=== PATIENT | female | born 1945 | race Caucasian/White ===

== ENCOUNTER → 2016-09-06 08:25 | Outpatient (CLI) | payer MEDICARE, OTHER | END | disposition home or self-care (01) | LOC: D.MRI 08:25 | DX: G31.84 Mild cognitive impairment of uncertain or unknown etiology (principal) ==

== ENCOUNTER → 2018-10-10 08:00 | Outpatient (CLI) | payer MEDICARE, OTHER ==
[~2018-10-10 08:00] MED LIST: ACETAMINOPHEN500 M1 PO; ALLER-CHLOR4 MG PO; BAYER CHEWABLE81 MG PO; BUPROPION XL150 MG PO; DONEPEZIL HCL5 MG PO; EZFE 200200 MG PO; FEMARA2.5 MG PO; FLUTICASONE PRO16 GM NASAL; MERIBIN5 MG PO; MERTAZAPINE PO; MYSOLINE 50 MG50 MG PO; PLAVIX75 MG PO; PROTONIX40 MG PO; REMICADE INJ100 MG; SUPER B COMPLEX; TUMERIC PO; ULTRAM50 MG PO; VITAMIN D5000 UNIT PO; [UNRECOGNIZED DRUG - OTHER] PO
[2018-10-24 11:52] VITALS: BMI 21.5
== END | disposition home or self-care (01) ==
LOC: D.MRI 08:00
PROVIDERS: ATTEND Family Medicine
DX: S32.010A Wedge compression fracture of first lumbar vertebra, initial encounter for closed fracture (principal); S22.070A Wedge compression fracture of T9-T10 vertebra, initial encounter for closed fracture; X58.XXXA Exposure to other specified factors, initial encounter

== ENCOUNTER → 2018-10-18 09:55 | Outpatient (CLI) | payer MEDICARE, OTHER ==
[2018-10-18 11:33] LABS: APPEARANCE CLEAR (CLEAR); BILIRUBIN NEGATIVE (NEGATIVE); COLOR YELLOW (YELLOW); GLUCOSE NEGATIVE (NEGATIVE); KETONE NEGATIVE (NEGATIVE); NITRITE NEGATIVE (NEGATIVE); PROTEIN NEGATIVE (NEGATIVE); SPECIFIC GRAVITY 1.015 (1.005-1.020); UROBILINOGEN NORMAL (NORMAL)
== END | disposition home or self-care (01) ==
LOC: D.LAB 09:55
PROVIDERS: ATTEND General Practice
DX: N39.0 Urinary tract infection, site not specified (principal)

== ENCOUNTER 2018-10-24 09:29 | Outpatient (CLI) | payer MEDICARE, OTHER ==
[~2018-10-24] VITALS: Ht 162.6 cm; Wt 56.8 kg
--- NOTE | ~2018-10-24 | HEMODYNAMI ---
PATIENT:REZA HU MEDICAL RECORD: [id number] : 45 LOCATION:[facility] ADMISSION DATE: 10/24/18 Generatedon:10/24/201814:04 Patient name: REZA HU Patient #: [id number] SSN: : 1945 Date of study: 10/24/2018 Page: Of Hemodynamic Procedure Report Patient Data Patient Demographics Procedure consent was obtained First Name: REZA Gender: Female Last Name: FRITZ : 1945 [facility] Initial: KRYSTIAN Age: 73 year(s) Patient #: [id number] Race: Unknown Additional ID: [id number] Contact details Address: [address] [place] [address] State: [place] City: [place] Zip code: [address] Admission Admission Data Admission Date: 10/24/2018 Admission Time: 9:29 Procedure Procedure Types Cath Procedure Peripheral Cath Diagnostic Procedure Kyphoplasty Kyphoplasty Thoracic Procedure Description Procedure Date Procedure Date: 10/24/2018 Procedure Start Time: 13:08 Procedure End Time: 14:04 Procedure Staff Name Function Yefri Sims MD Performing Physician Minal Mitchell RT Monitor Jennifer Mcpherson RN Nurse Taty Soriano RN Nurse Kuldeep Causey RT Scrub WU COTTRELL RT Scrub Alexander Calderon Additional personnel Procedure Data Cath Procedure Fluoroscopy Diagnostic fluoroscopy Total fluoroscopy Time: time: 10.5 min 10.5 min Diagnostic fluoroscopy Total fluoroscopy dose: 98 dose: 98 mGy mGy Contrast Material Contrast Material Type Amount (ml) Isovue 300 0 Procedure Medications Medication Administration Route Dosage Heparin Flush Bag added to field 2 bags (1000units/500ml NS) Lidocaine 1% added to field 20 Ancef (1Gm/50ml NS) I.V.P.B 1 g Hemodynamics Rest Heart Rate: 110 (bpm) Snapshots Pre Cath Intra NCS Post Cath Vital Signs Time Heart Resp SPO2 etCO2 NIBP (mmHg) Rhythm Pain Sedation Rate (ipm) (%) (mmHg) Status Level (bpm) 12:41:12 81 16 99 25.5 171/99(107) NSR 0 (11) 10(A) , No pain 12:45:40 62 20 100 22.5 148/71(100) NSR 0 (11) 8(A) , No pain 12:48:47 68 32 100 25.5 142/79(102) NSR 0 (11) 8(A) , No pain 12:53:03 71 18 100 25.5 142/78(116) NSR 0 (11) 8(A) , No pain 12:57:21 68 16 100 28.5 135/73(98) NSR 0 (11) 8(A) , No pain 13:01:39 70 20 100 24.8 121/63(99) NSR 0 (11) 8(A) , No pain 13:05:53 68 18 100 32.3 114/60(89) NSR 0 (11) 8(A) , No pain 13:10:07 68 32 100 36 101/53(74) NSR 0 (11) 8(A) , No pain 13:14:19 72 10 100 34.5 95/46(59) NSR 0 (11) 8(A) , No pain 13:18:18 67 9 100 27 112/53(74) NSR 0 (11) 8(A) , No pain 13:22:30 71 8 99 33 87/43(63) NSR 0 (11) 8(A) , No pain 13:26:34 70 16 99 36 103/55(71) NSR 0 (11) 8(A) , No pain 13:30:44 76 8 98 45.8 92/46(61) NSR 0 (11) 8(A) , No pain 13:34:52 72 13 98 50.3 102/48(74) NSR 0 (11) 8(A) , No pain 13:39:05 76 18 98 30.8 86/39(53) NSR 0 (11) 8(A) , No pain 13:43:07 72 11 98 42.8 99/54(81) NSR 0 (11) 8(A) , No pain 13:47:17 76 20 97 0 105/49(71) NSR 0 (11) 8(A) , No pain 13:51:27 86 15 97 71.4 108/53(81) NSR 0 (11) 8(A) , No pain 13:55:37 90 10 96 55.6 107/56(72) NSR 0 (11) 8(A) , No pain 13:59:47 91 13 96 40.5 107/58(82) NSR 0 (11) 8(A) , No pain 14:00:54 91 13 96 39.1 111/63(78) NSR 0 (11) 8(A) , No pain Medications Time Medication Route Dose Verified Delivered Reason Notes Effe ctiveness by by 12:42:22 Heparin Flush added 2 Yefri Jennifer used for Bag to bags Ky Sims rn procedures (1000units/500ml field NS) 12:42:45 Lidocaine 1% added 20ml Yefri Jennifer used for to vial Ky Sims rn procedures field 12:50:23 Ancef (1Gm/50ml I.V.P.B 1 g Yefri Jennifer used for NS) Ky Sims rn procedures MD Procedure Log Time Note 12:16:15 Kuldeep Causey RT (R) (CV) sent for patient. Start room use. 12:16:27 Alexander Calderon present and monitoring patient for TIVA. 12:16:35 Time tracking: Regular hours (M-F 7:00 - 5:00) 12:16:40 Plan of Care:Hemodynamics will remain stable., Cardiac rhythm will remain stable., Comfort level will be maintained., Respiratory function will remain adequate., Patient/ family verbilizes understanding of procedure., Procedure tolerated without complication., Recovers from procedure without complications.. 12:16:48 Use device set IR Diagnostic 12:16:50 Bag Decanter (2002S) opened to sterile field. 12:16:50 Sterile Angiographic Pack opened to sterile field. 12:16:51 Tegaderm 4 x 4 (1626W) opened to sterile field. 12:16:58 Patient received from Outpatients to IR Alert and oriented. Tansferred to table in Prone position. 12:17:00 Correct patient and procedure confirmed by team. 12:17:01 Signed procedure consent form obtained from patient. 12:17:02 ECG and BP/O2 sat monitors applied to patient. 12:17:04 Full Disclosure recording started 12:17:04 - 12:17:07 H&P Date Dictated: 10/24/2018 H&P Addendum completed by physician on day of procedure. (MUST COMPLETE FOR ALL OUTPATIENTS). 12:17:08 Pre-procedure instructions explained to patient. 12:17:09 Pre-op teaching completed and patient verbalized understanding. 12:17:10 Family in waiting room. 12:17:13 Patient NPO since Midnight. 12:17:16 - 12:17:31 SEE ANESTHESIA NOTE FOR PRE PROCEDURE TIVA 12:17:32 - 12:17:37 Sharps counted by scrub and verified. 12:17:37 Alarms reviewed. 12:30:04 Warm blankets applied, and yady hugger turned on for patient comfort. 12:35:50 Lumbar area was prepped with dura-prep and draped in sterile fashion 12:35:59 Thoracic area was prepped with dura-prep and draped in sterile fashion 12:39:57 Vital chart was started 12:40:29 Baseline sample Acquired. 12:42:22 Heparin Flush Bag (1000units/500ml NS) 2 bags added to field was administered by Jennifer Mcpherson RN; used for procedure; 12:42:45 Lidocaine 1% 20ml vial added to field was administered by Jennifer Mcpherson RN; used for procedure; 12:50:23 Ancef (1Gm/50ml NS) 1 g I.V.P.B was administered by Jennifer Mcpherson RN; used for procedure; 12:57:08 MARIELLA BNCMNT CURV BALLOON [id number] opened to sterile field. 12:57:10 MARIELLA AUTOPLEX MIXER W/VHV opened to sterile field. 12:57:11 [place] BONE BX 11GA kit opened to sterile field. 13:07:17 Physician arrived 13:07:18 --------ALL STOP TIME OUT------ 13:07:20 Final Timeout: patient, procedure, and site verified with staff and physician. All members of the team are in agreement. 13:07:31 THORACIC site verified by team. 13:08:02 Sedation plan: TIVA Medication:Propofol 13:08:57 Procedure started. 13:12:07 Local aneshetic to Thoracic with Lidocaine 1% by Yefri Sims MD. INITIAL SITE 13:20:22 Bone bx needle placed. 13:31:24 Kyphoplasty balloon introduced. 13:38:20 Cement introduced to vertebral body. 13:48:38 the access trocar was removed. 13:49:37 Procedure ended.(Physican Out) 13:55:29 Fluoroscopy time 10.50 minutes. 13:55:35 Fluoroscopy dose: 98 mGy 13:55:35 Flurop Dose total: 98 13:55:42 Contrast amount:Isovue 300 0ml. 13:55:46 Sharps counted by scrub and verified . 13:56:31 Post Thoracic area:stable 13:56:54 Patient needs reinforcement of post procedure teaching. 13:57:29 Insertion/operative site no bleeding no hematoma. 13:57:54 Post-op/insertion site Right Thoracic area dressed using a 4 x 4 and Tegaderm. 13:58:54 SEE ANESTHESIA NOTE FOR POST PROCEDURE ASSESSMENT . 13:59:16 Post procedure instruction explained to patient.Patient verbalizes understanding. 13:59:27 Procedure and supply charges have been captured, reviewed, submitted an d are correct. 13:59:36 See physician's report for complete and final results. 14:03:52 Report given to Outpatients. 14:03:59 Patient transfered to Outpatients with Stretcher. 14:04:03 Procedure ended. 14:04:03 Full Disclosure recording stopped 14:04:39 Vital chart was stopped Device Usage Item Name Manufacture Quantity Catalog Hospital Part Current Minim al Lot# / Number Charge Number Stock Stock Serial# Code Bag Decanter Microtek 1 [id number] 5 () Medical Inc. Sterile Cardinal 1 [id number] 5 Angiographic Health Pack Tegaderm 4 x 3M 1 1626W [id number] [id number] [id number] 5 4 (1626W) MARIELLA Mariella 1 [id number] [id number] [id number] 9 BNCMNT CURV BALLOON [id number] MARIELLA [place] 1 [id number] 691610 87136 [id number] 5 AUTOPLEX MIXER W/VHV Mariella BONE Mariella 1 [id number] 503108 [id number] 5 BX 11GA kit Signature Audit [place] Stage Time Signature Unsigned Intra-Procedure 10/24/2018 Minal 2:04:35 PM Paula THURSTON(R) (CV) Signatures Monitor : Minal Signature : Paula RT Date : Time : [address] [address]
[2018-10-24 09:52] LABS: BASOPHILS 0.4 % (0-2); EOSINOPHILS 1.6 % (0-7); HEMOGLOBIN 14.3 g/dL (12-16); IMMATURE GRANULOCYTES 0.2 % (0-5); LYMPHOCYTES 28.8 % (15-50); MCH 31.7 pg (26.0-34.0); MCV 93.1 fL (80.0-100.0); MEAN PLATELET VOLUME 9.5 fL (7.4-10.4); MONOCYTES 13.2 % (2-11); NEUTROPHILS 55.8 % (40-80); PLATELET COUNT 257 10x3/uL (130-400); RBC 4.51 10x6/uL (4.00-5.40); RDW 14.2 % (11.5-14.5); WBC 4.5 10x3/uL (4.8-10.8)
[2018-10-24 10:04] LABS: APTT 29.3 SECONDS (22.8-39.4); INR 1.05 (0.85-1.17); PROTIME 13.2 SECONDS (11.6-15.0)
[2018-10-24 10:05] LABS: CALC OSMOLALITY 283 mosm/kg (275-300); CALCIUM 9.2 mg/dL (8.5-10.1); CARBON DIOXIDE 27.9 mmol/L (21.0-32.0); CHLORIDE - SERUM 104 mmol/L (98-107); CREATININE - SERUM 0.7 mg/dL (0.6-1.3); GLUCOSE 93 mg/dL (74-106); SODIUM 142 mmol/L (136-145); UREA NITROGEN 16 mg/dL (7-18); eGFR NON AFRICAN AMERICAN 87 mL/min (90-120)
[2018-10-24] MEDS ORDERED: BAYER CHEWABLE81 MG PO (11:28)
[2018-10-24] MEDS ORDERED: MERIBIN5 MG PO (11:28)
[2018-10-24] MEDS ORDERED: ACETAMINOPHEN500 M1 PO (11:28)
[2018-10-24] MEDS ORDERED: BUPROPION XL150 MG PO (11:29)
[2018-10-24] MEDS ORDERED: [UNRECOGNIZED DRUG - OTHER] PO (11:30)
[2018-10-24] MEDS ORDERED: DONEPEZIL HCL5 MG PO (11:30)
[2018-10-24] MEDS ORDERED: FLUTICASONE PRO16 GM NASAL (11:31)
[2018-10-24] MEDS ORDERED: FEMARA2.5 MG PO (11:31)
[2018-10-24] MEDS ORDERED: EZFE 200200 MG PO (11:31)
[2018-10-24] MEDS ORDERED: MYSOLINE 50 MG50 MG PO (11:32)
[2018-10-24] MEDS ORDERED: MERTAZAPINE PO (11:32)
[2018-10-24] MEDS ORDERED: PLAVIX75 MG PO (11:32)
[2018-10-24] MEDS ORDERED: REMICADE INJ100 MG (11:33)
[2018-10-24] MEDS ORDERED: PROTONIX40 MG PO (11:33)
[2018-10-24] MEDS ORDERED: ALLER-CHLOR4 MG PO (11:34)
[2018-10-24] MEDS ORDERED: SUPER B COMPLEX (11:34)
[2018-10-24] MEDS ORDERED: TUMERIC PO (11:35)
[2018-10-24] MEDS ORDERED: ULTRAM50 MG PO (11:35)
[2018-10-24] MEDS ORDERED: VITAMIN D5000 UNIT PO (11:35)
[2018-10-24 11:52] VITALS: BP 153/81; Ht 162.6 cm; Wt 56.8 kg
--- NOTE | 2018-10-24 14:38 | NUR ---
1440 PT UNABLE TO GET OOB, REFUSED A BEDPAN SO SHE STATED SHE WILL JUST BE INCONTINENT IN HER SUPER PAD. TURNED TO LEFT SIDE. WAITING FOR PAIN MED ORDER FROM DR BROWNLEE. PT IN MODERATE PAIN. SAME PAIN SHE HAD BEFORE PROCEDURE.
--- NOTE | 2018-10-24 15:07 | NUR ---
1455 MEDICATED FOR PAIN. 1500 ABI HERE AT BEDSIDE. PT ON LEFT SIDE. DRG CDI ICE PACK TO BACK. 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 ORDERS GIVEN FOR DILAUDID IV 0.5MG
--- NOTE | 2018-10-24 15:32 | NUR ---
1532 DR BROWNLEE AT BEDSIDE TO TALK WITH PT. PT GIVEN IV DILAUDID FOR PAIN. MOVES ALL EXTREMITIES WELL. GOOD SENSATION. TOLERATING ICE CREAM,
--- NOTE | 2018-10-24 16:04 | NUR ---
RADIOLOGY DEPT CALLED AND SPOKE TO LOWE NURSE AND INFORMED HER OF PTS PAIN LEVEL AND THAT SHE WANTED A RX FOR PAIN. ULTRAM 50MG WORKED WITH THE IV DILAUDID.
--- NOTE | 2018-10-24 16:22 | NUR ---
IV REMOVED PT WALKED IN HALLWAY WITH STAND BY ASSIST. BALANCE STEADY. DRG DRY AND INTACT.
== END 2018-10-24 16:30 | disposition home or self-care (01) ==
LOC: D.SP 09:29
PROVIDERS: ATTEND General Practice
DX: M48.54XA Collapsed vertebra, not elsewhere classified, thoracic region, initial encounter for fracture (principal); F32.9 Major depressive disorder, single episode, unspecified; K50.90 Crohn's disease, unspecified, without complications; D64.9 Anemia, unspecified; M81.0 Age-related osteoporosis without current pathological fracture; F09 Unspecified mental disorder due to known physiological condition; Z79.891 Long term (current) use of opiate analgesic; Z79.02 Long term (current) use of antithrombotics/antiplatelets; Z79.82 Long term (current) use of aspirin; Z79.899 Other long term (current) drug therapy; Z88.5 Allergy status to narcotic agent; Z88.2 Allergy status to sulfonamides; Z88.8 Allergy status to other drugs, medicaments and biological substances; Z01.812 Encounter for preprocedural laboratory examination

== ENCOUNTER → 2019-01-17 14:34 | Outpatient (CLI) | payer MEDICARE, OTHER ==
[2018-10-24 11:52] VITALS: BMI 21.5
== END | disposition home or self-care (01) ==
LOC: D.MRI 14:34
PROVIDERS: ATTEND Family Medicine
DX: S32.000A Wedge compression fracture of unspecified lumbar vertebra, initial encounter for closed fracture (principal)

== ENCOUNTER 2019-01-30 15:00 | Outpatient (CLI) | payer MEDICARE, OTHER ==
[~2019-01-30] VITALS: Ht 160 cm; Wt 52.3 kg
[2019-01-30 15:30] VITALS: Ht 160 cm; Wt 52.3 kg
[2019-01-30 16:57] LABS: APPEARANCE CLEAR (CLEAR); BILIRUBIN NEGATIVE (NEGATIVE); COLOR YELLOW (YELLOW); GLUCOSE NEGATIVE (NEGATIVE); KETONE NEGATIVE (NEGATIVE); NITRITE NEGATIVE (NEGATIVE); PROTEIN NEGATIVE (NEGATIVE); UROBILINOGEN NORMAL (NORMAL)
== END 2019-01-30 15:50 | disposition home or self-care (01) ==
LOC: D.OPS 15:00
PROVIDERS: ATTEND General Practice
DX: R10.9 Unspecified abdominal pain (principal); M48.54XA Collapsed vertebra, not elsewhere classified, thoracic region, initial encounter for fracture; X58.XXXA Exposure to other specified factors, initial encounter; Z01.812 Encounter for preprocedural laboratory examination

== ENCOUNTER 2019-02-05 10:54 | Outpatient (CLI) | payer MEDICARE, OTHER ==
[~2019-02-05] VITALS: Ht 160 cm; Wt 52.2 kg
--- NOTE | ~2019-02-05 | HEMODYNAMI ---
PATIENT:REZA HU MEDICAL RECORD: [id number] : 45 LOCATION:[facility] ADMISSION DATE: 02/05/19 Generatedon:02/05/201914:42 Patient name: REZA HU Patient #: [id number] SSN: : 1945 Date of study: 02/05/2019 Page: Of Hemodynamic Procedure Report Patient Data Patient Demographics Procedure consent was obtained First Name: REZA Gender: Female Last Name: FRITZ : 1945 [facility] Initial: KRYSTIAN Age: 73 year(s) Patient #: [id number] Race: Unknown Additional ID: [id number] Contact details Address: [facility] [address] State: [place] City: [place] Zip code: [address] Past Medical History Allergies Allergen Reaction Date Comments Reported Other allergy 02/05/2019 sulfa, valium, flexeril, flagyl, percocet, benadryl, hydrocodone, latex, reglan, tetracycline, varapamil Admission Admission Data Admission Date: 02/05/2019 Admission Time: 10:54 Procedure Procedure Types Cath Procedure Peripheral Cath Diagnostic Procedure Miscellaneous Procedure Description Procedure Date Procedure Date: 02/05/2019 Procedure Start Time: 14:16 Procedure End Time: 14:39 Procedure Staff Name Function Yefri Sims MD Performing Physician WU COTTRELL RT Monitor Taty Soriano RN Nurse Kuldeep Causey RT Scrub Lance Garg CRNA Additional personnel Procedure Data Cath Procedure Fluoroscopy Diagnostic fluoroscopy Total fluoroscopy Time: 5.9 time: 5.9 min min Diagnostic fluoroscopy Total fluoroscopy dose: 136 dose: 136 mGy mGy Procedure Medications Medication Administration Route Dosage Heparin Flush Bag added to field 2 bags (1000units/500ml NS) Lidocaine 1% added to field 20 Heparin Flush Bag added to field 1 bags (1000units/500ml NS) Lidocaine 1% added to field 20 Hemodynamics Rest Heart Rate: 49 (bpm) Snapshots Pre Cath Intra NCS Post Cath Vital Signs Time Heart Resp SPO2 etCO2 NIBP (mmHg) Rhythm Pain Sedation Rate (ipm) (%) (mmHg) Status Level (bpm) 13:34:08 100 30.8 141/81(105) NSR 0 (11) 10(A) , No pain 13:38:18 100 25.5 141/78(112) NSR 0 (11) 10(A) , No pain 13:42:26 100 24.7 133/83(102) NSR 0 (11) 10(A) , No pain 13:47:25 28.5 Measuring NSR 0 (11) 10(A) , No pain 13:48:25 33 135/88(116) NSR 0 (11) 10(A) , No pain 13:52:32 73 15 100 33.8 125/81(100) NSR 0 (11) 10(A) , No pain 13:56:34 71 12 100 35.2 131/81(104) NSR 0 (11) 10(A) , No pain 14:00:38 70 19 100 29.2 128/83(105) NSR 0 (11) 10(A) , No pain 14:04:40 71 14 100 33 129/84(98) NSR 0 (11) 10(A) , No pain 14:08:43 63 17 100 0 115/77(93) NSR 0 (11) 10(A) , No pain 14:12:39 84 14 100 34.5 122/92(109) NSR 0 (11) 10(A) , No pain 14:16:41 68 13 100 26.2 118/77(96) NSR 0 (11) 10(A) , No pain 14:20:44 64 9 100 37.5 101/72(88) NSR 0 (11) 10(A) , No pain 14:24:46 60 9 100 17.2 104/58(79) NSR 0 (11) 10(A) , No pain 14:28:50 59 9 100 19.5 101/55(92) NSR 0 (11) 10(A) , No pain 14:32:47 59 10 100 40.5 102/68(82) NSR 0 (11) 10(A) , No pain 14:36:43 72 15 100 36 116/73(96) NSR 0 (11) 10(A) , No pain Medications Time Medication Route Dose Verified Delivered Reason Notes Effe ctiveness by by 13:27:26 Heparin Flush added 2 Yefri Asif used for Bag to bags Levi Sims MD procedure (1000units/500ml field [place] NS) 13:27:38 Lidocaine 1% added 20ml Yefri Asif for local to vial Levi Sims MD anesthetic field EVANS 13:59:22 Heparin Flush added 1 Yefri Asif used for Bag to bags Levi Sims MD procedure (1000units/500ml field [place] NS) 13:59:35 Lidocaine 1% added 20ml Yefri Asif for local to vial Levi Sims MD anesthetic field EVANS Procedure Log Time Note 13:19:02 Kuldeep Causey RT (R) (CV) sent for patient. Start room use. 13:19:04 Time tracking: Regular hours (M-F 7:00 - 5:00) 13:19:15 Plan of Care:Hemodynamics will remain stable., Cardiac rhythm will remain stable., Comfort level will be maintained., Respiratory function will remain adequate., Patient/ family verbilizes understanding of procedure., Procedure tolerated without complication., Recovers from procedure without complications.. 13:19:23 Patient received from Outpatients to IR Alert and oriented. Tansferred to table in Prone position. 13:19:27 Signed procedure consent form obtained from patient. 13:19:32 Correct patient and procedure confirmed by team. 13:19:35 ECG and BP/O2 sat monitors applied to patient. 13:19:38 - 13:19:39 - 13:19:47 H&P Date Dictated: 02/05/2019 H&P Addendum completed by physician on day of procedure. (MUST COMPLETE FOR ALL OUTPATIENTS). 13:19:51 Pre-procedure instructions explained to patient. 13:19:51 Pre-op teaching completed and patient verbalized understanding. 13:19:56 Patient NPO since Midnight. 13:23:33 Is the patient allergic to Iodine/contrast media? No. 13:27:26 Heparin Flush Bag (1000units/500ml NS) 2 bags added to field was administered by Yefri Sims MD; used for procedure; 13:27:29 Patient allergic to Other allergysulfa, valium, flexeril, flagyl, percocet, benadryl, hydrocodone, latex, reglan, tetracycline, varapamil 13:27:38 Lidocaine 1% 20ml vial added to field was administered by Yefri Sims MD; for local anesthetic; 13:27:41 Is patient on blood thinner?Yes. Aspirin and Plavix last dose 01/31/2019 13:28:30 Patient diabetic? No. 13:28:32 - 13:29:26 see anesthesia note for pre-anesthesia assessment 13:29:33 - 13:29:52 Lumbar area was prepped with chlora-prep and draped in sterile fashion 13:29:55 Alarms reviewed by Estefani Harris 13::56 Sharps counted by scrub and verified by Serge 13:32:33 - 13:33:00 Vital chart was started 13:33:12 Full Disclosure recording started 13:41:12 - 13:41:24 Use device set IR Diagnostic 13:41:29 Bag Decanter () opened to sterile field. 13:41:29 Sterile Angiographic Pack opened to sterile field. 13:41:30 Tegaderm 4 x 4 (1626W) opened to sterile field. 13:50:04 Baseline sample Acquired. 13:50:36 - 13:59:22 Heparin Flush Bag (1000units/500ml NS) 1 bags added to field was administered by Yefri Sims MD; used for procedure; 13:59:35 Lidocaine 1% 20ml vial added to field was administered by Yefri Sims MD; for local anesthetic; 14:13:22 Physician arrived 14:13:31 --------ALL STOP TIME OUT------ 14:14:18 Final Timeout: patient, procedure, and site verified with staff and physician. All members of the team are in agreement. 14:14:25 Lumbar site verified by team. 14:14:30 Fire Safety Assessment: A--An alcohol-based skin anteseptic being used preoperatively., C--Open oxygen or nitrous oxide is being used. 14:14:51 2) 60-89 Mildly reduced kidney function, and other findings (as for stage 1) point to kidney disease. 14:14:56 Kuldeep Causey RT (R) (CV) present and monitoring patient for TIVA. 14:16:39 Procedure started. 14:27:50 Bone bx needle placed. 14:33:00 [place] BONE BX 11GA kit opened to sterile field. 14:35:48 Procedure ended.(Physican Out) 14:36:18 Fluoroscopy time 05.90 minutes. 14:36:38 Fluoroscopy dose: 136 mGy 14:36:38 Flurop Dose total: 136 14:38:43 see anethesia note for post anethesia 14:39:07 Post-op/insertion site Left Lumbar area dressed using a 4 x 4 and Tegaderm. 14:39:40 Procedure and supply charges have been captured, reviewed, submitted an d are correct. 14:39:42 Vital chart was stopped 14:39:45 See physician's report for complete and final results. 14:39:49 Patient transfered to Outpatients with Stretcher. 14:39:53 Procedure ended. 14:39:53 Full Disclosure recording stopped Device Usage Item Name Manufacture Quantity Catalog Hospital Part Current Minimal Lot# / Number Charge Number Stock Stock Serial# Code Bag Decanter Microtek 1 [id number] 5 () Medical Inc. Sterile Cardinal 1 [id number] 5 Angiographic Health Pack Tegaderm 4 x 3M 1 1626W 464807 [id number] [id number] 5 4 (1626W) Mariella BONE Mariella 1 [id number] 5 BX 11GA kit Signature Audit [place] Stage Time Signature Unsigned Intra-Procedure 02/05/2019 WU COTTRELL RT 2:42:07 PM (R) Signatures Monitor : WU COTTRELL RT Signature : Date : Time : [facility] [address] [place] [address]
[2019-02-05 11:13] LABS: BASOPHILS 0.4 % (0-2); EOSINOPHILS 0.4 % (0-7); IMMATURE GRANULOCYTES 0.2 % (0-5); LYMPHOCYTES 28.5 % (15-50); MCH 31.5 pg (26.0-34.0); MCHC 34.1 g/dL (31.0-37.0); MCV 92.4 fL (80.0-100.0); MEAN PLATELET VOLUME 9.2 fL (7.4-10.4); MONOCYTES 9.3 % (2-11); NEUTROPHILS 61.2 % (40-80); PLATELET COUNT 230 10x3/uL (130-400); RBC 4.76 10x6/uL (4.00-5.40); RDW 15.5 % (11.5-14.5); WBC 5.5 10x3/uL (4.8-10.8)
[2019-02-05 11:20] LABS: CALC OSMOLALITY 279 mosm/kg (275-300); CHLORIDE - SERUM 104 mmol/L (98-107); CREATININE - SERUM 0.7 mg/dL (0.6-1.3); GLUCOSE 89 mg/dL (74-106); POTASSIUM - SERUM 3.7 mmol/L (3.5-5.1); SODIUM 141 mmol/L (136-145); UREA NITROGEN 13 mg/dL (7-18); eGFR NON AFRICAN AMERICAN 87 mL/min (90-120)
[2019-02-05 11:26] LABS: APTT 27.6 SECONDS (22.8-39.4); INR 1.08 (0.85-1.17); PROTIME 13.5 SECONDS (11.6-15.0)
[2019-02-05] MEDS ORDERED: FEMARA2.5 MG PO (11:51)
[2019-02-05] MEDS ORDERED: MILK OF MAGNESI30 ML PO (11:55)
[2019-02-05 12:04] VITALS: BP 106/69; Ht 160 cm; Wt 52.2 kg
--- NOTE | 2019-02-05 17:17 | NUR ---
1500 SEE FREQ VS SHEET IV REMOVED FROM PORT AND FLUSHED WITH 500 UNITS OF HEPRIN IV AND NEEDLE REMOVED AND BANDAID APPLIED
[2019-02-06 20:07] LABS: ACID FAST SMEAR Negative (()); AFB SPECIMEN PROCESSING Tissue Grinding (())
[2019-02-07 12:10] LABS: FUNGUS STAIN Final report (())
[2019-02-08 17:08] LABS: FUNGUS MYCOLOGY CULTURE Preliminary report (())
== END 2019-02-05 17:00 | disposition home or self-care (01) ==
LOC: D.SP 10:54 → D.RAD 13:00 → D.SP 13:30
PROVIDERS: ATTEND General Practice
DX: M48.54XA Collapsed vertebra, not elsewhere classified, thoracic region, initial encounter for fracture (principal)

== ENCOUNTER 2019-02-16 10:56 | Day surgery (SDC) | payer MEDICARE, OTHER ==
[~2019-02-16] VITALS: Ht 160 cm; Wt 51.4 kg
--- NOTE | ~2019-02-16 | HEMODYNAMI ---
PATIENT:REZA HU MEDICAL RECORD: [id number] : 45 LOCATION:[facility] ADMISSION DATE: 02/16/19 Generatedon:02/16/201915:18 Patient name: REZA HU Patient #: [id number] SSN: : 1945 Date of study: 02/16/2019 Page: Of Hemodynamic Procedure Report Patient Data Patient Demographics First Name: REZA Gender: Female Last Name: FRITZ : 1945 [facility] Initial: KRYSTIAN Age: 73 year(s) Patient #: [id number] Race: Unknown Additional ID: [id number] Contact details Address: [place] [address] State: [place] City: [place] Zip code: [address] Past Medical History Allergies Allergen Reaction Date Comments Reported Other allergy 02/05/2019 sulfa, valium, flexeril, flagyl, percocet, benadryl, hydrocodone, latex, reglan, tetracycline, varapamil Admission Admission Data Admission Date: 02/16/2019 Admission Time: 10:56 Procedure Procedure Types Cath Procedure Peripheral Cath Diagnostic Procedure Kyphoplasty Kyphoplasty Thoracic Procedure Description Procedure Date Procedure Date: 02/16/2019 Procedure Start Time: 14:29 Procedure Staff Name Function Yefri Sims MD Performing Physician Kuldeep Causey RT Monitor WU COTTRELL RT Scrub Jennifer Mcpherson RN Nurse Rafita Calderon CRNA Additional personnel Procedure Data Cath Procedure Fluoroscopy Diagnostic fluoroscopy Total fluoroscopy Time: time: 11.4 min 11.4 min Diagnostic fluoroscopy Total fluoroscopy dose: 238 dose: 238 mGy mGy Contrast Material Contrast Material Type Amount (ml) Isovue 300 50 Hemodynamics Rest Heart Rate: 74 (bpm) Snapshots Pre Cath Intra NCS Post Cath Vital Signs Time Heart Resp SPO2 etCO2 NIBP (mmHg) Rhythm Pain Sedation Rate (ipm) (%) (mmHg) Status Level (bpm) 14:12:07 67 7 17.2 No Cuff NSR 0 (11) 10(A) , No pain 14:15:34 71 6 18.7 121/74(103) NSR 0 (11) 10(A) , No pain 14:19:36 70 9 100 22.5 120/76(98) NSR 0 (11) 10(A) , No pain 14:23:36 66 9 100 20.9 116/81(100) NSR 0 (11) 10(A) , No pain 14:27:35 67 10 100 20.9 117/77(98) NSR 0 (11) 10(A) , No pain 14:31:39 72 30 100 18 104/66(87) NSR 0 (11) 10(A) , No pain 14:35:40 70 40 100 8.2 95/59(72) NSR 0 (11) 10(A) , No pain 14:40:40 69 61 99 18.7 Measuring NSR 0 (11) 10(A) , No pain 14:41:31 66 63 99 18.7 82/57(71) NSR 0 (11) 10(A) , No pain 14:45:26 67 47 99 16.5 91/55(65) NSR 0 (11) 10(A) , No pain 14:49:24 65 65 99 18 84/56(69) NSR 0 (11) 10(A) , No pain 14:53:19 65 64 99 14.2 83/56(71) NSR 0 (11) 10(A) , No pain 14:57:13 65 62 100 18 91/59(73) NSR 0 (11) 10(A) , No pain 15:01:08 65 65 100 18 85/60(71) NSR 0 (11) 10(A) , No pain 15:05:04 65 58 100 18 87/53(72) NSR 0 (11) 10(A) , No pain 15:08:52 66 28 100 13.5 103/85(101) NSR 0 (11) 10(A) , No pain 15:12:47 73 12 100 21 103/78(90) NSR 0 (11) 10(A) , No pain 15:16:59 100 0 No Cuff NSR 0 (11) 10(A) , No pain Procedure Log Time Note 13:54:20 Rafita Calderon CRNA present and monitoring patient for TIVA. 13:54:26 Jennifer Mcpherson RN sent for patient. Start room use. 13:54:35 Use device set IR Diagnostic 13:54:36 Bag Decanter (2002S) opened to sterile field. 13:54:36 Sterile Angiographic Pack opened to sterile field. 13:54:37 Tegaderm 4 x 4 (1626W) opened to sterile field. 13:54:44 Time tracking: Regular hours (M-F 7:00 - 5:00) 13:54:51 Plan of Care:Hemodynamics will remain stable., Cardiac rhythm will remain stable., Comfort level will be maintained., Respiratory function will remain adequate., Patient/ family verbilizes understanding of procedure., Procedure tolerated without complication., Recovers from procedure without complications.. 13:54:58 Patient received from Outpatients to IR Alert and oriented. Tansferred to table in Prone position. 13:54:59 Correct patient and procedure confirmed by team. 13:55:04 ECG and BP/O2 sat monitors applied to patient. 13:55:05 Full Disclosure recording started 13:55:09 - 13:55:13 H&P Date Dictated: 02/16/2019 H&P Addendum completed by physician on day of procedure. (MUST COMPLETE FOR ALL OUTPATIENTS). 13:55:14 Pre-procedure instructions explained to patient. 13:55:14 Pre-op teaching completed and patient verbalized understanding. 13:55:31 - 13:55:54 SEE ANESTHESIA NOTES FOR PRE ANESTHESIA NOTES 13:55:59 - 13:56:05 Alarms reviewed by Estefani Harris 13:56:05 Sharps counted by scrub and verified by Serge 13:56:11 Thoracic area was prepped with dura-prep and draped in sterile fashion 14:11:17 Vital chart was started 14:11:19 Baseline sample Acquired. 14::27 Baseline sample Acquired. 14:28: Physician arrived 14:28:06 --------ALL STOP TIME OUT------ 14:: Final Timeout: patient, procedure, and site verified with staff and physician. All members of the team are in agreement. 14:28:26 Lumbar site verified by team. 14:28:31 Fire Safety Assessment: A--An alcohol-based skin anteseptic being used preoperatively., C--Open oxygen or nitrous oxide is being used. 14:29:35 Sedation plan: TIVA Medication:Propofol 14:29:45 Procedure started. 14:29:55 Local anesthetic to Thoracic area with Lidocaine 1% by Yefri Sims MD.INITIAL ACCESS ONLY 14:29:58 MARIELLA BNCMNT CURV BALLOON [id number] opened to sterile field. 15:06:15 Procedure ended.(Physican Out) 15:07:43 Fluoroscopy time 11.40 minutes. 15:07:51 Fluoroscopy dose: 238 mGy 15:07:51 Flurop Dose total: 238 15:08:01 Contrast amount:Isovue 300 50ml. 15:08:21 50 CC CONTRAST USED FOR INFLATOR 15:08:24 Insertion/operative site no bleeding no hematoma. 15:08:34 Post Thoracic area:stable 15:17:24 SEE ANESTHESIA NOTE FOR POST PROCEDURE TIVA 15:17:29 Report given to Outpatients. 15:17:33 Patient transfered to Outpatients with Stretcher. 15:18:12 Vital chart was stopped Device Usage Item Name Manufacture Quantity Catalog Hospital Part Current Minim al Lot# / Number Charge Number Stock Stock Serial# Code Bag Decanter Microtek 1 [id number] 5 () [employer] Sterile Cardinal [address] [id number] 5 Angiographic Health Pack Tegaderm 4 x 3M 1 1626W [id number] 5 4 (1626W) MARIELLA Mariella 1 [id number] 1 BNCMNT CURV BALLOON [id number] Signature Audit [place] Stage Time Signature Unsigned Intra-Procedure 02/16/2019 Kuldeep 3:18:11 PM Padilla RT (R) (CV) Signatures Monitor : Kuldeep Signature : Padilla RT Date : Time : [address] [place] [address]
[~2019-02-16 10:56] MED LIST changes: +MILK OF MAGNESI30 ML PO
[2019-02-16 11:25] LABS: BASOPHILS 0.3 % (0-2); EOSINOPHILS 0.7 % (0-7); HEMATOCRIT 44.8 % (36.0-48.0); HEMOGLOBIN 14.9 g/dL (12-16); IMMATURE GRANULOCYTES 0.2 % (0-5); LYMPHOCYTES 29.6 % (15-50); MCH 30.8 pg (26.0-34.0); MCHC 33.3 g/dL (31.0-37.0); MCV 92.6 fL (80.0-100.0); MEAN PLATELET VOLUME 9.4 fL (7.4-10.4); MONOCYTES 9.9 % (2-11); NEUTROPHILS 59.3 % (40-80); PLATELET COUNT 245 10x3/uL (130-400); RBC 4.84 10x6/uL (4.00-5.40); RDW 15.5 % (11.5-14.5)
[2019-02-16 11:35] LABS: CALC OSMOLALITY 281 mosm/kg (275-300); CALCIUM 9.5 mg/dL (8.5-10.1); CARBON DIOXIDE 30.7 mmol/L (21.0-32.0); CHLORIDE - SERUM 104 mmol/L (98-107); CREATININE - SERUM 0.7 mg/dL (0.6-1.3); GLUCOSE 93 mg/dL (74-106); POTASSIUM - SERUM 3.9 mmol/L (3.5-5.1); SODIUM 141 mmol/L (136-145); UREA NITROGEN 15 mg/dL (7-18); eGFR NON AFRICAN AMERICAN 87 mL/min (90-120)
[2019-02-16 11:36] LABS: APTT 27.1 SECONDS (22.8-39.4); INR 1.01 (0.85-1.17); PROTIME 12.8 SECONDS (11.6-15.0)
[2019-02-16] MEDS ORDERED: PROTONIX40 MG PO (12:16)
[2019-02-16 12:29] VITALS: BP 125/64; Ht 160 cm; Wt 51.4 kg
--- NOTE | 2019-02-16 17:50 | NUR ---
DISCHARGE INSTRUCTIONS REVIEWED WITH PATIENT AND SPOUSE, DISCHARGED HOME VIA WHEELCHAIR TO PRIVATE VEHICLE WITH SPOUSE
== END 2019-02-16 17:50 | disposition home or self-care (01) ==
LOC: D.SP 10:56 → D.RAD 13:30 → D.SP 17:50
PROVIDERS: ATTEND General Practice
DX: M48.54XA Collapsed vertebra, not elsewhere classified, thoracic region, initial encounter for fracture (principal)

== ENCOUNTER → 2019-03-30 12:32 | Outpatient (CLI) | payer MEDICARE, OTHER | END | disposition home or self-care (01) | LOC: D.RAD 12:32 | PROVIDERS: ATTEND Family Medicine | DX: R13.11 Dysphagia, oral phase (principal) ==

== ENCOUNTER 2019-04-09 00:11 | Inpatient (IN) | payer MEDICARE, OTHER ==
[~2019-04-09] VITALS: Ht 160 cm; Wt 47.6 kg
[2019-04-09] VITALS (7 sets, daily range): BP systolic 100–130; BP diastolic 67–82; Ht 160 cm; Wt 47.6 kg
--- NOTE | 2019-04-09 00:27 | NUR ---
EKG ATTEMPTED. UNABLE TO OBTAIN EKG D/T PT HX OF PARKINSON[place].
[2019-04-09 00:44] LABS: BASOPHILS 0.4 % (0-2); EOSINOPHILS 1.1 % (0-7); HEMATOCRIT 40.5 % (36.0-48.0); HEMOGLOBIN 13.7 g/dL (12-16); IMMATURE GRANULOCYTES 0.4 % (0-5); LYMPHOCYTES 30.8 % (15-50); MCH 31.6 pg (26.0-34.0); MCHC 33.8 g/dL (31.0-37.0); MCV 93.3 fL (80.0-100.0); MEAN PLATELET VOLUME 9.6 fL (7.4-10.4); MONOCYTES 10.5 % (2-11); NEUTROPHILS 56.8 % (40-80); PLATELET COUNT 244 10x3/uL (130-400); RBC 4.34 10x6/uL (4.00-5.40); RDW 14.5 % (11.5-14.5); WBC 7.5 10x3/uL (4.8-10.8)
--- NOTE | 2019-04-09 01:00 | NUR ---
RT AT PT BEDSIDE.
[2019-04-09 01:08] LABS: APTT 28.1 SECONDS (22.8-39.4); INR 1.06 (0.85-1.17); PROTIME 13.3 SECONDS (11.6-15.0)
[2019-04-09 01:09] LABS: ALBUMIN 3.8 g/dL (3.4-5.0); ALKALINE PHOSPHATASE 111 U/L (46-116); ALT (SGPT) 10 U/L (10-68); BILIRUBIN - TOTAL 0.58 mg/dL (0.2-1.3); CALC OSMOLALITY 278 mosm/kg (275-300); CALCIUM 9.1 mg/dL (8.5-10.1); CARBON DIOXIDE 28.2 mmol/L (21.0-32.0); CHLORIDE - SERUM 103 mmol/L (98-107); CREATININE - SERUM 0.8 mg/dL (0.6-1.3); GLUCOSE 90 mg/dL (74-106); POTASSIUM - SERUM 3.9 mmol/L (3.5-5.1); PROTEIN - SERUM 7.3 g/dL (6.4-8.2); SODIUM 139 mmol/L (136-145); UREA NITROGEN 15 mg/dL (7-18); eGFR NON AFRICAN AMERICAN 74 mL/min (90-120)
[2019-04-09 01:16] LABS: CKMB 2.6 U/L (0.0-3.6); CREATINE KINASE 128 UL (21-215); PRO BNP 34 pg/mL (0-125)
[2019-04-09 01:22] LABS: TROPONIN-I < 0.017 ng/mL (0.000-0.060)
--- NOTE | 2019-04-09 01:45 | NUR ---
O2 VIA NC TURNED OFF AT THIS TIME. PT ON RA.
--- NOTE | 2019-04-09 03:21 | NUR ---
PT ARRIVED ON UNIT VIA WHEELCHAIR ESCORTED BY ER NURSE. ORIENTED TO ROOM AND CALL LIGHT. POSITIONED FOR COMFORT.
[2019-04-09] MEDS ORDERED: ATIVAN1 MG PO (03:33)
[2019-04-09] MEDS ORDERED: REMERON30 MG PO (03:39)
--- NOTE | 2019-04-09 04:45 | NUR ---
ADMISSION ASSESSMENT AND HISTORY COMPLETE.
--- NOTE | 2019-04-09 07:00 | NUR ---
PATIENT RECIEVED FROM PREVIOUS SHIFT RESTING WITH NO NEEDS VOICED. PATIENT HOPES TO BE DISCHARGED TODAY DUE TO FEELING BETTER.
--- NOTE | 2019-04-09 17:05 | NUR ---
RT PERFORMED NIF AND VC NIF -20 (PATIENT REACHED BETWEEN -20 AND -25) VITAL CAPACITY 900MLS EACH TEST PERFORMED 3 TIMES ALL WITH GOOD EFFORT AND TECHNIQUE TO ENSURE ACCURACY.
--- NOTE | 2019-04-09 20:00 | NUR ---
ALERT SITTING UP IN BED REQUESTING ATIVAN, STATES I FEEL LIKE IM GOING TO HAVE ONE OF THOSE PANIC ATTACKS, ATIVAN GIVEN ORDERED, O2 SAT AT 95% ON RA, WILL MONITOR, SEE ASSESSMENT, CALL LIGHT IN REACH
[2019-04-10 00:30] VITALS: BP 108/68
[2019-04-10 05:11] VITALS: BP 124/60
--- NOTE | 2019-04-10 07:00 | NUR ---
PATIENT RECIEVED RESTING WITH NO NEEDS VOICED, RESPIRATIONS NON-LABORED. CL IN REACH
--- NOTE | 2019-04-10 07:00 | NUR ---
PATIENT RECIEVED RESTING WITH NO NEEDS VOICED. RESPIRATIONS REGULAR AND NONLABORED.
[2019-04-10 08:28] VITALS: BP 108/63
[2019-04-10 13:13] VITALS: BP 90/56
--- NOTE | 2019-04-10 16:13 | MORECARE ---
CASE MANAGEMENT DISCHARGE SUMMARY PATIENT: REZA HU KRYSTIAN UNIT: [id number] ADM DATE: 04/09/19 AGE: 74 : 45 SEX: F ROOM/BED: D.4519 AUTHOR: EMPERATRIZ BARRERA PHYSICIAN: REFERRING PHYSICIAN: KALLIE MIRANDA MD DATE OF SERVICE: 04/10/19 Discharge Plan Patient Name: REZA HU Facility: [facility]:[place] : 1945 Planned Disposition: Home Health Service Anticipated Discharge Date: Discharge Date: Expected LOS: Initial Reviewer: [id number] Initial Review Date: 04/09/2019 Generated: 04/10/19 5:12 pm Comments DCP- Discharge Planning Updated by [email or web address]: Leyla Grijalva on 04/10/19 3:[address] Patient Name: REZA HU Admission Status: ER Accout number: [id number] Admission Date: 04-09-2019 : 1945 Admission Diagnosis: Attending: KALLIE MIRANDA Current LOS: 1 Anticipated DC Date: Planned Disposition: Home Health Service Primary Insurance: MEDICARE A & B Discharge Planning Comments: CM met with patient to assess discharge planning needs. Patient lives independently with her . She is current with [employer]. She uses a walker at times and her will be the one to drive her home. She denies any discharge planning needs Continuity Writer: Leyla Grijalva DCP- Discharge Planning Updated by [email or web address]: Leyla Grijalva on 04/09/19 2:[address] MAN SERVED AND EXPLAINED. COPY PLACED IN CHART Coverage Notice Reviewer: [id number] - Leyla Grijalva Notice Issued Date-Time: 04/09/2019 15:30 Notice Type: Medicare Outpatient Observation Notice Notice Delivered To: Patient Relationship to Patient: Server Administrator Name: Delivery Method: HAND - Hand Delivered Radha Days: Prior Verbal Notification: Recipient Understood Notice: Yes Recipient Signature: Yes Med Rec Note Co-signed by Attending: Coverage Notice Comment: Patient Name: REZA HU Page 85331 at 1613 All edits/amendments must be made on the electronic document DICTATION DATE: 04/10/191611 GLOVE BOARDER: DM 04/10/191611 RPT#: [id number] DC DATE: STATUS: ADM IN [facility] [address] [place] [address] END OF REPORT
[2019-04-10 16:41] VITALS: BP 108/64
--- NOTE | 2019-04-10 20:00 | NUR ---
ALERT RESTING IN BED DENIES PAIN OR NEEDS AT THIS TIME, RESP EVEN AND UNLABORED, SEE SHIFT ASSESSMENT CALL LIGHT IN REACH
[2019-04-10 20:49] VITALS: BP 106/68
[2019-04-11 01:12] VITALS: BP 126/70
[2019-04-11 05:03] VITALS: BP 108/64
--- NOTE | 2019-04-11 07:32 | NUR ---
PT SITTING UP IN BED. RESP EVEN AND UNLABORED. RIGHT CHEST PORT ACCESSED AND SALINE LOC'D. SALINE LOC TO RIGHT FOREARM INTACT. SITES WITHOUT REDNESS OR EDEMA. PT DENIES PAIN AT THIS TIME. DENIES FURTHER NEEDS AT THIS TIME. CL WITHIN REACH. ENCOURAGED TO CALL WITH NEEDS. CONTINUE POC
[2019-04-11 09:23] VITALS: BP 119/69
--- NOTE | 2019-04-11 11:05 | NUR ---
PT RIGHT CHEST PORT FLUSHED WITH HEPARIN AND DISCONTINUED. APPLIED 2X2 TO SITE AND COVERED WITH COVADERM. SALINE LOC D/C'D FROM RIGHT FOREARM CATH INTACT. DISCHARGE PAPERWORK PROVIDED TO PT, WITH CONTINUED MEDICATIONS, FOLLOW UP APPOINTMENT AND EDUCATION. PT DENIED QUESTIONS AT THIS TIME. PT TAKEN OUT VIA W/C TO PRIVATE VEHICLE WITH ALL PERSONAL BELONGINGS.
--- NOTE | 2019-04-11 11:41 | MORECARE ---
CASE MANAGEMENT DISCHARGE SUMMARY PATIENT: REZA HU UNIT: [id number] ADM DATE: 04/10/19 AGE: 74 : 45 SEX: F ROOM/BED: D.9864 AUTHOR: EMPERATRIZ BARRERA PHYSICIAN: REFERRING PHYSICIAN: KALLIE MIRANDA MD DATE OF SERVICE: 04/11/19 Discharge Plan Patient Name: REZA HU Facility: [facility]:[place] : 1945 Planned Disposition: Home Health Service Anticipated Discharge Date: Discharge Date: 04/11/2019 Expected LOS: Initial Reviewer: [email or web address] Initial Review Date: 04/09/2019 Generated: 04/11/19 12:41 pm Comments DCP- Discharge Planning Updated by [email or web address]: Leyla Grijalva on 04/11/19 10:[address] patient discharging home will send clinical to [facility] DCP- Discharge Planning Updated by [id number]: Leyla Grijalva on 04/10/19 3:[address] Patient Name: REZA HU Admission Status: ER Accout number: [id number] Admission Date: 04-09-2019 : 1945 Admission Diagnosis: Attending: KALLIE MIRANDA Current LOS: 1 Anticipated DC Date: Planned Disposition: Home Health Service Primary Insurance: MEDICARE A & B Discharge Planning Comments: CM met with patient to assess discharge planning needs. Patient lives independently with her . She is current with [employer]. She uses a walker at times and her will be the one to drive her home. She denies any discharge planning needs Master Pilot: Leyla Grijalva DCP- Discharge Planning Updated by [email or web address]: Leyla Grijalva on 04/09/19 2:[address] MAN SERVED AND EXPLAINED. COPY PLACED IN CHART Coverage Notice Reviewer: [id number] - Leyla Grijalva Notice Issued Date-Time: 04/09/2019 15:30 Notice Type: Medicare Outpatient Observation Notice Notice Delivered To: Patient Relationship to Patient: Supervisor Assembly Name: Delivery Method: HAND - Hand Delivered Radha Days: Prior Verbal Notification: Recipient Understood Notice: Yes Recipient Signature: Yes Med Rec Note Co-signed by Attending: Coverage Notice Comment: Last DP export: 04/10/19 3:13 p Patient Name: REZA HU Page 80750 at 1141 All edits/amendments must be made on the electronic document DICTATION DATE: 04/11/19 114 ADVANCE AGENT: ENDER 04/11/19 114 RPT#: [id number] DC DATE:04/11/19 STATUS: DIS IN [facility] [address] [place] [address] END OF REPORT
--- NOTE | 2019-04-11 12:07 | MORECARE ---
CASE MANAGEMENT DISCHARGE SUMMARY PATIENT: REZA HU UNIT: [id number] ADM DATE: 04/10/19 AGE: 74 : 45 SEX: F ROOM/BED: D.8840 AUTHOR: EMPERATRIZ BARRERA PHYSICIAN: REFERRING PHYSICIAN: KALLIE MIRANDA MD DATE OF SERVICE: 04/11/19 Discharge Plan Patient Name: REZA HU Facility: [facility]:[place] : 1945 Planned Disposition: Home Health Service Anticipated Discharge Date: Discharge Date: 04/11/2019 Expected LOS: Initial Reviewer: [email or web address] Initial Review Date: 04/09/2019 Generated: 04/11/19 1:06 pm Comments DCP- Discharge Planning Updated by [email or web address]: Leyla Grijalva on 04/11/19 10:[address] patient discharging home will send clinical to [facility] DCP- Discharge Planning Updated by [email or web address]: Leyla Grijalva on 04/10/19 3:[address] Patient Name: REZA HU Admission Status: ER Accout number: [id number] Admission Date: 04-09-2019 : 1945 Admission Diagnosis: Attending: KALLIE MIRANDA Current LOS: 1 Anticipated DC Date: Planned Disposition: Home Health Service Primary Insurance: MEDICARE A & B Discharge Planning Comments: CM met with patient to assess discharge planning needs. Patient lives independently with her . She is current with [employer]. She uses a walker at times and her will be the one to drive her home. She denies any discharge planning needs Iron Worker Foreman: Leyla Grijalva DCP- Discharge Planning Updated by [email or web address]: Leyla Grijalva on 04/09/19 2:[address] MAN SERVED AND EXPLAINED. COPY PLACED IN CHART External [facility]iders [facility] Next Contact Date: Service Request Date: Service Type: Resolution: Reviewer: Comments: Coverage Notice Reviewer: [id number] - Leyla Grijalva Notice Issued Date-Time: 04/09/2019 15:30 Notice Type: Medicare Outpatient Observation Notice Notice Delivered To: Patient Relationship to Patient: Safety Leader Name: Delivery Method: HAND - Hand Delivered Radha Days: Prior Verbal Notification: Recipient Understood Notice: Yes Recipient Signature: Yes Med Rec Note Co-signed by Attending: Coverage Notice Comment: Last DP export: 04/11/19 10:41 a Patient Name: REZA HU Page 58852 at 1207 All edits/amendments must be made on the electronic document DICTATION DATE: 04/11/191205 LEAD C DEVELOPER: ENDER 04/11/191205 RPT#: [id number] DC DATE:04/11/19 STATUS: DIS IN [facility] [address] [place] [address] END OF REPORT
--- NOTE | 2019-04-12 08:15 | MORECARE ---
CASE MANAGEMENT DISCHARGE SUMMARY PATIENT: REZA HU UNIT: [id number] ADM DATE: 04/10/19 AGE: 74 : 45 SEX: F ROOM/BED: D.8940 AUTHOR: EMPERATRIZ BARRERA PHYSICIAN: REFERRING PHYSICIAN: KALLIE MIRANDA MD DATE OF SERVICE: 04/12/19 Discharge Plan Patient Name: REZA HU Facility: [facility]:[place] : 1945 Planned Disposition: Home Health Service Anticipated Discharge Date: Discharge Date: 04/11/2019 Expected LOS: 0 Initial Reviewer: [email or web address] Initial Review Date: 04/09/2019 Generated: 04/12/19 9:14 am Comments DCP- Discharge Planning Updated by [email or web address]: Leyla Grijalva on 04/11/19 10:[address] patient discharging home will send clinical to [facility] DCP- Discharge Planning Updated by [email or web address]: Leyla Grijalva on 04/10/19 3:[address] Patient Name: REZA HU Admission Status: ER Accout number: [id number] Admission Date: 04-09-2019 : 1945 Admission Diagnosis: Attending: KALLIE MIRANDA Current LOS: 1 Anticipated DC Date: Planned Disposition: Home Health Service Primary Insurance: MEDICARE A & B Discharge Planning Comments: CM met with patient to assess discharge planning needs. Patient lives independently with her . She is current with [email or web address]. She uses a walker at times and her will be the one to drive her home. She denies any discharge planning needs Veterinary Livestock Inspector: Leyla Grijalva DCP- Discharge Planning Updated by [email or web address]: Leyla Grijalva on 04/09/19 2:[address] MAN SERVED AND EXPLAINED. COPY PLACED IN CHART Coverage Notice Reviewer: [id number] - Leyla Grijalva Notice Issued Date-Time: 04/09/2019 15:30 Notice Type: Medicare Outpatient Observation Notice Notice Delivered To: Patient Relationship to Patient: Reaming Machine Tender Name: Delivery Method: HAND - Hand Delivered Radha Days: Prior Verbal Notification: Recipient Understood Notice: Yes Recipient Signature: Yes Med Rec Note Co-signed by Attending: Coverage Notice Comment: Last DP export: 04/11/19 11:07 a Patient Name: REZA HU Page 73093 at 0815 All edits/amendments must be made on the electronic document DICTATION DATE: 04/12/19813 ORDER ENTRY TECHNICIAN: ENDER 04/12/19813 RPT#: [id number] DC DATE:04/11/19 STATUS: DIS IN [facility] [address] [place] [address] END OF REPORT
== END 2019-04-11 11:17 | disposition home health service (06) | DRG 641 ==
LOC: D.ER 00:11 → D.MS 02:13 → OBSVTIME 02:13 → D.MS 04-10 18:36
PROVIDERS: Family Medicine; ADMIT Family Medicine; ATTEND Family Medicine
DX: E87.3 Alkalosis (principal); K50.90 Crohn's disease, unspecified, without complications; F41.9 Anxiety disorder, unspecified; G20 Parkinson's disease; K21.9 Gastro-esophageal reflux disease without esophagitis; M19.90 Unspecified osteoarthritis, unspecified site; F41.0 Panic disorder [episodic paroxysmal anxiety]; M80.88XD Other osteoporosis with current pathological fracture, vertebra(e), subsequent encounter for fracture with routine healing; M41.85 Other forms of scoliosis, thoracolumbar region

== ENCOUNTER 2019-05-21 09:30 | Emergency (ER) | payer MEDICARE, OTHER ==
[~2019-05-21] VITALS: Ht 160 cm; Wt 49.1 kg
[~2019-05-21 09:30] MED LIST changes: +ATIVAN1 MG PO; +REMERON30 MG PO
[2019-05-21 09:39] VITALS: Ht 160 cm; Wt 49.1 kg
[2019-05-21 10:58] VITALS: BP 120/78
== END 2019-05-21 10:58 | disposition home or self-care (01) ==
LOC: D.ER 09:30
DX: S00.11XA Contusion of right eyelid and periocular area, initial encounter (principal); W19.XXXA Unspecified fall, initial encounter; Y93.9 Activity, unspecified; Y92.9 Unspecified place or not applicable; S60.512A Abrasion of left hand, initial encounter; S80.811A Abrasion, right lower leg, initial encounter; G20 Parkinson's disease; F02.80 Dementia in other diseases classified elsewhere, unspecified severity, without behavioral disturbance, psychotic disturbance, mood disturbance, and anxiety

== ENCOUNTER 2019-09-04 09:07 | Emergency (ER) | payer MEDICARE, OTHER ==
[~2019-09-04] VITALS: Ht 160 cm; Wt 46.8 kg
[2019-09-04 09:11] VITALS: Ht 160 cm; Wt 46.8 kg
[2019-09-04] MEDS ORDERED: RYTARY (09:18)
[2019-09-04] MEDS ORDERED: MAG-OX 400 MG400 MG (09:19)
[2019-09-04] MEDS ORDERED: ULTRAM50 MG PO (09:19)
[2019-09-04 09:51] LABS: BASOPHILS 0.8 % (0-2); HEMATOCRIT 41.9 % (36.0-48.0); HEMOGLOBIN 13.7 g/dL (12-16); IMMATURE GRANULOCYTES 0.3 % (0-5); LYMPHOCYTES 26.4 % (15-50); MCH 30.4 pg (26.0-34.0); MCHC 32.7 g/dL (31.0-37.0); MCV 93.1 fL (80.0-100.0); MEAN PLATELET VOLUME 9.8 fL (7.4-10.4); MONOCYTES 10.1 % (2-11); NEUTROPHILS 61.4 % (40-80); PLATELET COUNT 240 10x3/uL (130-400); WBC 3.9 10x3/uL (4.8-10.8)
[2019-09-04 09:59] LABS: CALC OSMOLALITY 280 mosm/kg (275-300); CALCIUM 8.8 mg/dL (8.5-10.1); CARBON DIOXIDE 31.9 mmol/L (21.0-32.0); CHLORIDE - SERUM 103 mmol/L (98-107); CREATININE - SERUM 0.7 mg/dL (0.6-1.3); GLUCOSE 103 mg/dL (74-106); POTASSIUM - SERUM 3.9 mmol/L (3.5-5.1); SODIUM 140 mmol/L (136-145); UREA NITROGEN 18 mg/dL (7-18); eGFR NON AFRICAN AMERICAN 87 mL/min (90-120)
[2019-09-04 10:17] LABS: ALBUMIN 3.8 g/dL (3.4-5.0); ALKALINE PHOSPHATASE 84 U/L (30-120); ALT (SGPT) 9 U/L (10-68); AMYLASE - SERUM 41 U/L (25-115); CKMB 1.7 U/L (0.0-3.6); CREATINE KINASE 103 UL (21-215); LIPASE 143 U/L (73-393); TROPONIN-I < 0.017 ng/mL (0.000-0.060)
[2019-09-04 10:50] LABS: BILIRUBIN NEGATIVE (NEGATIVE); GLUCOSE NEGATIVE (NEGATIVE); KETONE NEGATIVE (NEGATIVE); NITRITE NEGATIVE (NEGATIVE); UROBILINOGEN NORMAL (NORMAL)
[2019-09-04] MEDS ORDERED: CARAFATE1 G PO (12:42)
[2019-09-04] MEDS ORDERED: PROTONIX40 MG PO (12:42)
[2019-09-04 12:55] VITALS: BP 151/66
== END 2019-09-04 12:55 | disposition home or self-care (01) ==
LOC: D.ER 09:07
PROVIDERS: Family Medicine
DX: K29.70 Gastritis, unspecified, without bleeding (principal); R10.9 Unspecified abdominal pain; G20 Parkinson's disease; F02.80 Dementia in other diseases classified elsewhere, unspecified severity, without behavioral disturbance, psychotic disturbance, mood disturbance, and anxiety; R11.0 Nausea

== ENCOUNTER 2019-09-08 18:34 | Inpatient (IN) | payer MEDICARE, OTHER ==
[~2019-09-08] VITALS: Ht 160 cm; Wt 44.5 kg
[~2019-09-08 18:34] MED LIST changes: +CARAFATE1 G PO; +MAG-OX 400 MG400 MG; +RYTARY ER 23.71 EACH PO; -SUPER B COMPLEX; +SUPER B COMPLEX1 TAB PO
[2019-09-08 19:00] VITALS: BP 127/83
[2019-09-08 19:01] LABS: BASOPHILS 0.1 % (0-2); EOSINOPHILS 0.1 % (0-7); HEMATOCRIT 43.7 % (36.0-48.0); HEMOGLOBIN 14.4 g/dL (12-16); IMMATURE GRANULOCYTES 0.5 % (0-5); LYMPHOCYTES 6.9 % (15-50); MCH 30.6 pg (26.0-34.0); MCV 92.8 fL (80.0-100.0); MEAN PLATELET VOLUME 10.1 fL (7.4-10.4); MONOCYTES 10.8 % (2-11); NEUTROPHILS 81.6 % (40-80); RBC 4.71 10x6/uL (4.00-5.40); RDW 16.1 % (11.5-14.5); WBC 15.9 10x3/uL (4.8-10.8)
[2019-09-08 19:02] LABS: PLATELET COUNT 323 10x3/uL (130-400)
[2019-09-08 19:08] LABS: ANION GAP 12.2 mmol/L (8-16); CREATININE - SERUM 0.9 mg/dL (0.6-1.3); POTASSIUM - SERUM 4.2 mmol/L (3.5-5.1)
[2019-09-08 19:14] LABS: ALBUMIN 3.3 g/dL (3.4-5.0); BILIRUBIN - TOTAL 0.84 mg/dL (0.2-1.3)
[2019-09-08 19:30] LABS: AMYLASE - SERUM 62 U/L (25-115); LIPASE 331 U/L (73-393)
[2019-09-08 19:31] LABS: TROPONIN-I < 0.017 ng/mL (0.000-0.060)
[2019-09-08 20:00] VITALS: BP 113/79
--- NOTE | 2019-09-08 20:43 | NUR ---
ASSISTED TO [facility]. URINE SENT TO THE LAB
[2019-09-08 20:55] LABS: BILIRUBIN NEGATIVE (NEGATIVE); GLUCOSE NEGATIVE (NEGATIVE); KETONE SMALL mg/dL (NEGATIVE); NITRITE NEGATIVE (NEGATIVE); SPECIFIC GRAVITY 1.015 (1.005-1.020)
[2019-09-08 20:57] LABS: RED CELLS - URINE 0-5 /hpf (0-5)
[2019-09-08 20:58] LABS: BACTERIA MODERATE /hpf (NEGATIVE); EPITHELIAL CELLS 0-5 /hpf (0-5)
[2019-09-08 21:00] VITALS: BP 127/81
[2019-09-08 22:00] VITALS: BP 123/86
--- NOTE | 2019-09-08 22:47 | NUR ---
RECEIVED FROM ER VIA [facility] [place]. ALERT.ORIENTED. RESP EVENA ND UNALBORED. NO DISTRESS NOTED. NG TUBE TO RIGHT NARE INTACT AND DRAINING BROWN TINGED LIQUID. ABD SOFT NONDISTENDED. IV TO RIGHT CHEST PORT INTACT WITHOUT REDNESS OR EDEMA NOTED. ORIENTED TO ROOM. CL IN REACH
[2019-09-08 22:51] VITALS: BP 144/85; BMI 17.4
[2019-09-09] VITALS: BP 134/87
[2019-09-09 04:00] VITALS: BP 121/81
[2019-09-09 05:24] LABS: BASOPHILS 0.1 % (0-2); EOSINOPHILS 0.3 % (0-7); HEMOGLOBIN 12.8 g/dL (12-16); IMMATURE GRANULOCYTES 0.6 % (0-5); LYMPHOCYTES 11.2 % (15-50); MCH 30.5 pg (26.0-34.0); MCHC 32.8 g/dL (31.0-37.0); MCV 92.9 fL (80.0-100.0); MEAN PLATELET VOLUME 10.1 fL (7.4-10.4); MONOCYTES 13.6 % (2-11); NEUTROPHILS 74.2 % (40-80); PLATELET COUNT 275 10x3/uL (130-400); RDW 16.4 % (11.5-14.5)
[2019-09-09 05:25] LABS: WBC 11.7 10x3/uL (4.8-10.8)
[2019-09-09 05:35] LABS: ANION GAP 11.8 mmol/L (8-16); CALCIUM 8.3 mg/dL (8.5-10.1); CREATININE - SERUM 0.8 mg/dL (0.6-1.3); POTASSIUM - SERUM 3.8 mmol/L (3.5-5.1)
[2019-09-09 09:43] VITALS: BP 113/71
[2019-09-09 12:53] VITALS: BP 120/76
--- NOTE | 2019-09-09 13:45 | HP ---
PATIENT: REZA HU MEDICAL RECORD: [id number] ACCOUNT: [id number] LOCATION:[facility] [id number] : [birth year] ADMISSION DATE: 09/08/19 PCP: KALLIE MIRANDA MD HISTORY AND PHYSICAL EXAMINATION DATE OF ADMISSION: 09/08/2019 The patient was seen in the Emergency Department at approximately 2200 hours on 09/08/2019. CHIEF COMPLAINT: Increased weakness for 2 weeks, worsening abdominal pain. HISTORY OF PRESENT ILLNESS: This is a 74-year-old white female followed by Dr. Miranda. She has a history of Parkinson's disease, Crohn's disease, depression, anemia, breast cancer, who has had increased weakness over the last couple of weeks. She was in the ER here about 5 days ago and had a workup then, a CT of the abdomen was fairly unremarkable. She was diagnosed with gastritis and sent home on Carafate and Protonix and she has come back now with worsening abdominal pain. Pain is in the lower abdomen, though has some nausea. She did have a small bowel movement the morning of 09/08/2019. In the Emergency Room, her white count was 15,900. Basic metabolic panel was fairly stable. Liver functions were normal. Troponin was normal. A KUB showed a partial small-bowel obstruction versus ileus. NG tube was placed in the Emergency Department and she is now admitted. PAST MEDICAL AND SURGICAL HISTORY: Breast cancer; Parkinson's disease, followed by Dr. Tillman; Crohn disease. The patient states she is in remission, depression, anemia, mild cognitive impairment. PAST SURGICAL HISTORY: Mastectomy, hysterectomy, knee surgery. ALLERGIES: REPORTED TO SULFA, DIAZEPAM, CYCLOBENZAPRINE, LORATADINE, METRONIDAZOLE, BENADRYL CAUSES RESTLESS LEGS, HYDROCODONE CAUSES ITCHING, LATEX, REGLAN, OXYCODONE, TETRACYCLINE, AND VERAPAMIL. HABITS: No tobacco, alcohol or drugs. SOCIAL HISTORY: , retired nurse. FAMILY HISTORY: Father at 77. He had an NV. He had diabetes. Mother at 89. She had heart disease and CHF. HOME MEDICATIONS: Wellbutrin-XL 300 once a day, Ativan 1 mg twice a day, Plavix 75 mg once a day, vitamin D3 5000 units once a day, Rytary 23.75/95 take 4 capsules 3 times a day, mirtazapine 30 mg at bedtime, primidone 50 mg at bedtime, aspirin 81 mg a day, donepezil 5 mg at bedtime. She was recently started on pantoprazole 40 mg twice a day and Carafate. REVIEW OF SYSTEMS: GENERAL: She has had a steady weight decline over the last couple of years. HEENT: No particular sinus or allergy problems. RESPIRATORY: No history of asthma, COPD. CARDIAC: No known coronary artery disease. GASTROINTESTINAL: Has a history of Crohn's that she states is in remission and is on no meds for. HISTORY AND PHYSICAL [id number] REZA HU MUSCULOSKELETAL: No significant arthritis. NEUROLOGICAL: She has Parkinson disease followed by Dr. Tillman. PSYCHIATRIC: She has depression and anxiety. PHYSICAL EXAMINATION: VITAL SIGNS: Temperature 98.2, pulse 111, respirations 16, blood pressure 120/79. GENERAL: The patient is awake and alert. She did not seem to be in distress. NG tube is in place in the ER. HEENT: Unremarkable. NECK: Supple. No JVD or bruit. HEART: Tachycardic. LUNGS: Fairly clear. ABDOMEN: Mildly distended, diffuse tenderness. No guarding, no rebound, no mass. Bowel sounds are hypoactive. EXTREMITIES: No edema. LABORATORY DATA: CBC with a white count of 15,900, hemoglobin 14.4, hematocrit 43.7. Basic metabolic panel: Sodium 138, potassium 4.2, chloride 99, CO2 of 31, BUN 37, creatinine 0.9, glucose 138, calcium 10. Liver functions were all normal. Troponin is normal. KUB suggest partial small-bowel obstruction versus ileus. ASSESSMENT: 1. Partial small-bowel obstruction. 2. Abdominal pain. 3. Parkinson's disease. 4. Dehydration. PLAN: Admit for gut rest, NG tube has been placed. She will be given IV fluids. I will talk with pharmacy in the morning about her medications as she is n.p.o. We will follow with serial x-rays of her abdomen. Other tests or procedures as warranted. TRANSINT:[id number] Voice Confirmation ID: [id number] DOCUMENT ID: [id number] RAI HEART MD at 1345 CC: [id number] DICTATION DATE: 09/09/19 1032 LYE PEEL OPERATOR: 09/09/19 1331 ADM IN [facility] [id number] [place] [address]
[2019-09-09 17:53] VITALS: BP 105/71
[2019-09-09 20:00] VITALS: BP 124/82
[2019-09-10] VITALS: BP 112/69
[2019-09-10 04:00] VITALS: BP 125/85
[2019-09-10 05:43] LABS: BASOPHILS 0.1 % (0-2); EOSINOPHILS 0.1 % (0-7); HEMATOCRIT 36.6 % (36.0-48.0); HEMOGLOBIN 11.9 g/dL (12-16); IMMATURE GRANULOCYTES 1.4 % (0-5); LYMPHOCYTES 9.8 % (15-50); MCH 30.1 pg (26.0-34.0); MCHC 32.5 g/dL (31.0-37.0); MCV 92.7 fL (80.0-100.0); MEAN PLATELET VOLUME 10.6 fL (7.4-10.4); NEUTROPHILS 76.6 % (40-80); PLATELET COUNT 263 10x3/uL (130-400); RBC 3.95 10x6/uL (4.00-5.40); RDW 16.6 % (11.5-14.5); WBC 11.1 10x3/uL (4.8-10.8)
[2019-09-10 07:18] LABS: CARBON DIOXIDE 22.1 mmol/L (21.0-32.0); CHLORIDE - SERUM 111 mmol/L (98-107); CREATININE - SERUM 0.6 mg/dL (0.6-1.3); POTASSIUM - SERUM 3.9 mmol/L (3.5-5.1); SODIUM 147 mmol/L (136-145); eGFR NON AFRICAN AMERICAN > 90 mL/min (90-120)
[2019-09-10 07:20] LABS: CALC OSMOLALITY 291 mosm/kg (275-300); GLUCOSE 70 mg/dL (74-106); UREA NITROGEN 19 mg/dL (7-18)
--- NOTE | 2019-09-10 08:00 | NUR ---
PATIENT IN BED WITH EYES CLOSED RESTING QUIETLY. IV INTACT. CALL LIGHT WITHIN REACH.
[2019-09-10 09:14] VITALS: BP 121/78
[2019-09-10 12:52] VITALS: BP 110/67
[2019-09-10 13:24] VITALS: Ht 160 cm; Wt 44.5 kg
[2019-09-10 17:13] VITALS: BP 126/64
[2019-09-10 17:26] LABS: BILIRUBIN NEGATIVE (NEGATIVE); GLUCOSE NEGATIVE (NEGATIVE); KETONE MODERATE mg/dL (NEGATIVE); NITRITE NEGATIVE (NEGATIVE); SPECIFIC GRAVITY 1.015 (1.005-1.020); UROBILINOGEN NORMAL (NORMAL)
--- NOTE | 2019-09-10 18:45 | NUR ---
PATIENT UP TO CHAIR TO VOID IN BP. IV INTACT. NGT INTACT AND ON LIWS. NO COMPLAINTS. CALL LIGHT WITHIN REACH.
[2019-09-10 20:00] VITALS: BP 127/82
--- NOTE | 2019-09-10 20:00 | NUR ---
ALERT RESTING IN BED NG TUBE IN PLACE TO LEFT NARES DRAINING BROWNISH COLORED FLUID, DENIES PAIN OR NEEDS AT THIS TIME, CALL JOSH CUTLER
[2019-09-11] VITALS: BP 130/80
[2019-09-11 04:00] VITALS: BP 117/73
[2019-09-11 05:46] LABS: HEMATOCRIT 38.5 % (36.0-48.0); HEMOGLOBIN 12.5 g/dL (12-16); MCH 29.8 pg (26.0-34.0); MCHC 32.5 g/dL (31.0-37.0); MCV 91.9 fL (80.0-100.0); MEAN PLATELET VOLUME 10.2 fL (7.4-10.4); PLATELET COUNT 295 10x3/uL (130-400); RBC 4.19 10x6/uL (4.00-5.40); RDW 16.7 % (11.5-14.5); WBC 12.6 10x3/uL (4.8-10.8)
[2019-09-11 06:37] LABS: C-REACTIVE PROTEIN 15.8 mg/dL (0.0-0.9); CALC OSMOLALITY 294 mosm/kg (275-300); CALCIUM 7.9 mg/dL (8.5-10.1); CARBON DIOXIDE 21.4 mmol/L (21.0-32.0); CHLORIDE - SERUM 110 mmol/L (98-107); CREATININE - SERUM 0.7 mg/dL (0.6-1.3); GLUCOSE 102 mg/dL (74-106); POTASSIUM - SERUM 3.2 mmol/L (3.5-5.1); SODIUM 148 mmol/L (136-145); UREA NITROGEN 16 mg/dL (7-18); eGFR NON AFRICAN AMERICAN 87 mL/min (90-120)
--- NOTE | 2019-09-11 08:05 | NUR ---
RECIEVED REPORT. PATIENT IS RESTING QUIETLY A THIS TIME.
[2019-09-11 09:19] LABS: LYMPHOCYTES 12 % (15-50); MONOCYTES 8 % (2-11); NEUTROPHILS 77 % (40-80); PLATELET ESTIMATE NORMAL
[2019-09-11 09:20] LABS: ANISOCYTOSIS OCC; ROULEAUX OCC
[2019-09-11 09:42] VITALS: BP 122/77
[2019-09-11 12:12] LABS: ERYTHROCYTE SEDIMENTATION RATE 28 mm/hr (0-30)
[2019-09-11 13:01] VITALS: BP 109/72
[2019-09-11 17:24] VITALS: BP 126/81
--- NOTE | 2019-09-11 18:39 | NUR ---
PATIENT REPORTS THAT WHEN SHE WAS BRUSHING HER TEETH AND WASHING HER FACE THE NG TUBE JUST CAME OUT ON ITS OWN. SHE DOES NOT HAVE ANY NAUSEA AND REPORTS THAT THE CLEAR LIQUIDS TASTED GREAT. PAGING DR DURANT NOW TO REPORT.
--- NOTE | 2019-09-11 18:43 | NUR ---
REPORTED TO DR DURANT THAT PATIENT PULLED OUT NG TUBE. HE SAYS WE CAN TRY TO LEAVE IT OUT FOR NOW. WILL CONTINUE TO MONITOR.
[2019-09-11 20:00] VITALS: BP 115/70
--- NOTE | 2019-09-11 20:00 | NUR ---
ALERT SITTING UP IN BED DENIES PAIN OR NAUSEA, REPORTS TOLERTING CLEAR LIQUIDS FINE, SEE SHIFT ASSESSMENT, CALL LIGHT IN REACH
--- NOTE | 2019-09-11 22:30 | NUR ---
UP TO BEDSIDE COMODE WITH ASSISTANCE HAD 5 SM HARD BALLS OF STOOL
[2019-09-12 04:00] VITALS: BP 175/75
[2019-09-12 05:32] LABS: BASOPHILS 0.1 % (0-2); EOSINOPHILS 0 % (0-7); HEMATOCRIT 35.6 % (36.0-48.0); HEMOGLOBIN 11.7 g/dL (12-16); IMMATURE GRANULOCYTES 3.5 % (0-5); LYMPHOCYTES 6.5 % (15-50); MCH 29.9 pg (26.0-34.0); MCHC 32.9 g/dL (31.0-37.0); MEAN PLATELET VOLUME 9.6 fL (7.4-10.4); MONOCYTES 5.7 % (2-11); NEUTROPHILS 84.2 % (40-80); PLATELET COUNT 285 10x3/uL (130-400); RBC 3.91 10x6/uL (4.00-5.40); RDW 16.6 % (11.5-14.5); WBC 15.6 10x3/uL (4.8-10.8)
[2019-09-12 05:49] LABS: CALC OSMOLALITY 292 mosm/kg (275-300); CALCIUM 7.4 mg/dL (8.5-10.1); CHLORIDE - SERUM 111 mmol/L (98-107); CREATININE - SERUM 0.6 mg/dL (0.6-1.3); GLUCOSE 153 mg/dL (74-106); POTASSIUM - SERUM 3.3 mmol/L (3.5-5.1); SODIUM 145 mmol/L (136-145); UREA NITROGEN 16 mg/dL (7-18); eGFR NON AFRICAN AMERICAN > 90 mL/min (90-120)
[2019-09-12 09:32] VITALS: BP 124/86
--- NOTE | 2019-09-12 10:35 | NUR ---
RESTING IN BED, IN ROOM, PT STATES THAT SHE DOENST WANT TO GO HOME TODAY, PORT WITH IV INFUSING
[2019-09-12 12:40] VITALS: BP 122/89
--- NOTE | 2019-09-12 13:39 | MORECARE ---
CASE MANAGEMENT DISCHARGE SUMMARY PATIENT: REZA HU KRYSTIAN UNIT: [id number] ADM DATE: 09/08/19 AGE: 74 : 45 SEX: F ROOM/BED: D.2226 AUTHOR: EMPERATRIZ BARRERA PHYSICIAN: REFERRING PHYSICIAN: RAI HEART MD DATE OF SERVICE: 09/12/19 Discharge Plan Patient Name: REZA HU [facility] [facility] 1945 Planned Disposition: Inpatient Rehab Anticipated Discharge Date: Discharge Date: Expected LOS: Initial Reviewer: [email or web address] Initial Review Date: 09/12/2019 Generated: 09/12/19 2:39 pm Patient Name: REZA HU Page 71848 at 1339 All edits/amendments must be made on the electronic document DICTATION DATE: 09/12/19 1339 PRESIDENT AND CHIEF COMMERCIAL OFFICER: ENDER 09/12/19 1339 RPT#: [id number] DC DATE: STATUS: ADM IN [facility] [address] [place] [address] END OF REPORT
--- NOTE | 2019-09-12 13:49 | MORECARE ---
CASE MANAGEMENT DISCHARGE SUMMARY PATIENT: REZA GRAFF UNIT: [id number] ADM DATE: 09/08/19 AGE: 74 : 45 SEX: F ROOM/BED: D.2226 AUTHOR: HOLLY,DOC PHYSICIAN: REFERRING PHYSICIAN: RAI HEART MD DATE OF SERVICE: 09/12/19 Discharge Plan Patient Name: REZA GRAFF Facility: [facility]:[place] : 1945 Planned Disposition: Inpatient Rehab Anticipated Discharge Date: Discharge Date: Expected LOS: Initial Reviewer: [email or web address] Initial Review Date: 09/12/2019 Generated: 09/12/19 2:48 pm Comments DCP- Discharge Planning Updated by [email or web address]: Leatha Booth on 09/12/19 12:[address] Patient Name: REZA GRAFF Admission Status: ER Accout number: [id number] Admission Date: 09-08-2019 : 1945 Admission Diagnosis:DEHYDRATION Attending: RAI HEART Current LOS: 4 Anticipated DC Date: Planned Disposition: Inpatient Rehab Primary Insurance: MEDICARE A & B Discharge Planning Comments: CM met with patient to complete initial dc planning assessment. CM educated patient on the CM role and verbal consent given by patient to complete assessment. Patient lives at home with her spouse. She states she is independent, except uses a walker for ambulation. She states she feels weak and thinks she may need a few days in rehab prior to discharge home. CM discussed availability of home health, rehab services, and medical equipment. Patient states she would like a referral to inpatient rehab here at [facility] and would like to also have [facility] when discharged home. LEIA for inpatient rehab and [facility] signed. CM will continue to follow and will assist as needed with dc plans/needs. [employer] Team Member: Leatha Booth DCPIA - Discharge Planning Initial Assessment Updated by [email or web address]: Leatha Booth on 09/12/19 1:39 pm * Is the patient Alert and Oriented? Yes * How many steps to enter\exit or inside your home? 0/0 * PCP Dr. Santizo * Pharmacy [facility] * Preadmission Environment Home with Family * ADLs Independent * Equipment Walker Wheelchair * List name and contact numbers for known caregivers / representatives who currently or will assist patient after discharge: Fabio Graff - [phone] * Verbal permission to speak to the caregivers and representatives has been obtained from the patient. Yes * Community resources currently utilized None * Additional services required to return to the preadmission environment? Yes * Can the patient safely return to the preadmission environment? Yes * Has this patient been hospitalized within the prior 30 days at any hospital? No Coverage Notice Reviewer: JEFFRY Booth Notice Issued Date-Time: 09/12/2019 13:41 Notice Type: IM Discharge Notice Notice Delivered To: Patient Relationship to Patient: Self Junior Database Administrator Name: Delivery Method: HAND - Hand Delivered Radha Days: Prior Verbal Notification: Recipient Understood Notice: Yes Recipient Signature: Yes Med Rec Note Co-signed by Attending: Coverage Notice Comment: IMM explained, signed, given, copy placed in MR Reviewer: JEFFRY Booth Notice Issued Date-Time: 09/12/2019 13:41 Notice Type: Patient Choice Letter Notice Delivered To: Patient Relationship to Patient: Self Junior Database Administrator Name: Delivery Method: HAND - Hand Delivered Radha Days: Prior Verbal Notification: Recipient Understood Notice: Yes Recipient Signature: Yes Med Rec Note Co-signed by Attending: Coverage Notice Comment: LEIA for [facility] Last DP export: 09/12/19 12:39 p Patient Name: REZA GRAFF Page 77510 at 1349 All edits/amendments must be made on the electronic document DICTATION DATE: 09/12/19 1348 NURSE SEXUAL ASSAULT: ENDER 09/12/19 1348 RPT#: [id number] DC DATE: STATUS: ADM IN [facility] [address] [place] [address] END OF REPORT
[2019-09-12 16:53] VITALS: BP 138/86
--- NOTE | 2019-09-12 17:04 | NUR ---
Rehab Note- Acute Inpatient Rehab prescreen order receieved. The patient is a good inpatient acute rehab candidate. Spoke with JESUS Zhang. Will accept to [facility] Acute Inpatient Rehab when medically stable and ready to discharge form the acute hospital. Will follow at this time. Thank you for this referral! Katia Chavez RN Clinical Liaison, [facility] Rehab
[2019-09-12 20:00] VITALS: BP 145/92
--- NOTE | 2019-09-13 02:49 | NUR ---
I have reviewed this patient and I concur with the Shift Assessment completed by the Licensed Practical Nurse today this shift.
[2019-09-13 04:00] VITALS: BP 103/68
[2019-09-13 04:18] LABS: BASOPHILS 0.3 % (0-2); EOSINOPHILS 0.1 % (0-7); HEMATOCRIT 36.9 % (36.0-48.0); HEMOGLOBIN 12.3 g/dL (12-16); IMMATURE GRANULOCYTES 4.9 % (0-5); LYMPHOCYTES 10.5 % (15-50); MCH 30.3 pg (26.0-34.0); MCHC 33.3 g/dL (31.0-37.0); MCV 90.9 fL (80.0-100.0); MEAN PLATELET VOLUME 9.6 fL (7.4-10.4); MONOCYTES 11.5 % (2-11); NEUTROPHILS 72.7 % (40-80); PLATELET COUNT 326 10x3/uL (130-400); RBC 4.06 10x6/uL (4.00-5.40); RDW 16.4 % (11.5-14.5); WBC 14.7 10x3/uL (4.8-10.8)
[2019-09-13 04:53] LABS: CALC OSMOLALITY 288 mosm/kg (275-300); CALCIUM 7.7 mg/dL (8.5-10.1); CARBON DIOXIDE 25.7 mmol/L (21.0-32.0); CHLORIDE - SERUM 112 mmol/L (98-107); CREATININE - SERUM 0.6 mg/dL (0.6-1.3); POTASSIUM - SERUM 3.3 mmol/L (3.5-5.1); SODIUM 144 mmol/L (136-145); UREA NITROGEN 17 mg/dL (7-18); eGFR NON AFRICAN AMERICAN > 90 mL/min (90-120)
[2019-09-13 04:54] LABS: GLUCOSE 97 mg/dL (74-106)
[2019-09-13] MEDS ORDERED: PREDNISONE20 MG PO (07:13)
--- NOTE | 2019-09-13 08:02 | MORECARE ---
CASE MANAGEMENT DISCHARGE SUMMARY PATIENT: REZA GRAFF UNIT: [id number] ADM DATE: 09/08/19 AGE: 74 : 45 SEX: F ROOM/BED: D.2226 AUTHOR: EMPERATRIZ BARRERA PHYSICIAN: REFERRING PHYSICIAN: RAI HEART MD DATE OF SERVICE: 09/13/19 Discharge Plan Patient Name: REZA GRAFF Facility: [facility]:[place] : 1945 Planned Disposition: Inpatient Rehab Anticipated Discharge Date: Discharge Date: Expected LOS: Initial Reviewer: [email or web address] Initial Review Date: 09/12/2019 Generated: 09/13/19 9:01 am Comments DCP- Discharge Planning Updated by [id number]: Leatha Booth on 09/13/19 6:[address] Dr. Santizo and informed him that [facility] states they will accept patient today to inpatient rehab. States he will discharge today. Patient is in agreement to plan. DC today to inpatient rehab at [facility]. DCP- Discharge Planning Updated by [id number]: Leatha Booth on 09/12/19 12:[address] Patient Name: ERZA GRAFF Admission Status: ER Accout number: [id number] Admission Date: 09-08-2019 : 1945 Admission Diagnosis:DEHYDRATION Attending: RAI HEART Current LOS: 4 Anticipated DC Date: Planned Disposition: Inpatient Rehab Primary Insurance: MEDICARE A & B Discharge Planning Comments: CM met with patient to complete initial dc planning assessment. CM educated patient on the CM role and verbal consent given by patient to complete assessment. Patient lives at home with her spouse. She states she is independent, except uses a walker for ambulation. She states she feels weak and thinks she may need a few days in rehab prior to discharge home. CM discussed availability of home health, rehab services, and medical equipment. Patient states she would like a referral to inpatient rehab here at [facility] and would like to also have [facility] when discharged home. [facility] for inpatient rehab and [facility] signed. CM will continue to follow and will assist as needed with dc plans/needs. Shop Firer/Fireman: Leatha Booth DCPIA - Discharge Planning Initial Assessment Updated by [email or web address]: Leatha Booth on 09/12/19 1:39 pm * Is the patient Alert and Oriented? Yes * How many steps to enter\exit or inside your home? 0/0 * PCP Dr. Santizo * [facility] * Preadmission Environment Home with Family * ADLs Independent * Equipment Walker Wheelchair * List name and contact numbers for known caregivers / representatives who currently or will assist patient after discharge: Fabio Graff - [phone] * Verbal permission to speak to the caregivers and representatives has been obtained from the patient. Yes * Community resources currently utilized None * Additional services required to return to the preadmission environment? Yes * Can the patient safely return to the preadmission environment? Yes * Has this patient been hospitalized within the prior 30 days at any hospital? No Coverage Notice Reviewer: [id number] Triny Booth Notice Issued Date-Time: 09/12/2019 13:41 Notice Type: IM Discharge Notice Notice Delivered To: Patient Relationship to Patient: Self Outside Physical Damage Appraiser Name: Delivery Method: HAND - Hand Delivered Radha Days: Prior Verbal Notification: Recipient Understood Notice: Yes Recipient Signature: Yes Med Rec Note Co-signed by Attending: Coverage Notice Comment: IMM explained, signed, given, copy placed in MR Reviewer: [id number] Triny Booth Notice Issued Date-Time: 09/12/2019 13:41 Notice Type: Patient Choice Letter Notice Delivered To: Patient Relationship to Patient: Self Outside Physical Damage Appraiser Name: Delivery Method: HAND - Hand Delivered Radha Days: Prior Verbal Notification: Recipient Understood Notice: Yes Recipient Signature: Yes Med Rec Note Co-signed by Attending: Coverage Notice Comment: [facility] for [facility] Last DP export: 09/12/19 12:49 p Patient Name: REZA GRAFF Page [id number] at 0802 All edits/amendments must be made on the electronic document DICTATION DATE: 09/13/19 08 MISSION PLANNER: ENDER 09/13/19800 RPT#: [id number] DC DATE: STATUS: ADM IN [facility] [address] [place] [address] END OF REPORT
[2019-09-13 08:17] VITALS: BP 87/64
--- NOTE | 2019-09-13 09:00 | NUR ---
ALERT AND ORIENTED X4. ABDOMEN SOFT WITH BOWEL SOUNDS NOTED X4. DENIES ANY PAIN OR DISCOMFORT AT THIS TIME. IV TO RT. A/C WITH IVF INFUSING AT PRESCRIBED RATE. DENIES ANY PAIN OR DISCOMFORT AT THIS TIME. PATINET TAKES MEDS CRESHED WITH APPLESAUCE. LEFT ARM RESERVED. NO PERIPHERAL EDEMA NOTED. IV TO RT. MEDIPORT WITH NO S/S OF INFECTION/INFILTRATION. ENCOURAGED TO USE CALL LIGHT FOR ASSSIT.
--- NOTE | 2019-09-13 09:04 | MORECARE ---
CASE MANAGEMENT DISCHARGE SUMMARY PATIENT: REZA GRAFF UNIT: [id number] ADM DATE: 09/08/19 AGE: 74 : 45 SEX: F ROOM/BED: D.2226 AUTHOR: EMPERATRIZ BARRERA PHYSICIAN: REFERRING PHYSICIAN: RAI HEART MD DATE OF SERVICE: 09/13/19 Discharge Plan Patient Name: REZA GRAFF Facility: [facility]:[place] : 1945 Planned Disposition: Inpatient Rehab Anticipated Discharge Date: Discharge Date: Expected LOS: Initial Reviewer: [email or web address] Initial Review Date: 09/12/2019 Generated: 09/13/19 10:04 am Comments DCP- Discharge Planning Updated by [email or web address]: Leatha Booth on 09/13/19 7:[address] Patient Name: REZA GRAFF Encounter No: [id number] : 1945 Primary Insurance: MEDICARE A & B Anticipated DC Date: Planned Disposition: Inpatient Rehab External Planned Provider: : DCP follow-up note: Patient and family in agreement with discharge plan. Her is present in the room. No changes to plan. Case management will follow and assist as needed. Leatha Booth DCP- Discharge Planning Updated by [id number]: Leatha Booth on 09/13/19 6:[address] Dr. Santizo and informed him that [facility] states they will accept patient today to inpatient rehab. States he will discharge today. Patient is in agreement to plan. DC today to inpatient rehab at [facility]. DCP- Discharge Planning Updated by [email or web address]: Leatha Booth on 09/12/19 12:[address] Patient Name: REZA GRAFF Admission Status: ER Accout number: [id number] Admission Date: 09-08-2019 : 1945 Admission Diagnosis:DEHYDRATION Attending: RAI HEART Current LOS: 4 Anticipated DC Date: Planned Disposition: Inpatient Rehab Primary Insurance: MEDICARE A & B Discharge Planning Comments: CM met with patient to complete initial dc planning assessment. CM educated patient on the CM role and verbal consent given by patient to complete assessment. Patient lives at home with her spouse. She states she is independent, except uses a walker for ambulation. She states she feels weak and thinks she may need a few days in rehab prior to discharge home. CM discussed availability of home health, rehab services, and medical equipment. Patient states she would like a referral to inpatient rehab here at [facility] and would like to also have [facility] when discharged home. [facility] for inpatient rehab and [facility] signed. CM will continue to follow and will assist as needed with dc plans/needs. Spring Floor Service Worker: Leatha Booth DCPIA - Discharge Planning Initial Assessment Updated by [email or web address]: Leatha Booth on 09/12/19 1:39 pm * Is the patient Alert and Oriented? Yes * How many steps to enter\exit or inside your home? 0/0 * PCP Dr. Santizo * [facility] * Preadmission Environment Home with Family * ADLs Independent * Equipment Walker Wheelchair * List name and contact numbers for known caregivers / representatives who currently or will assist patient after discharge: Fabio Graff - [phone] * Verbal permission to speak to the caregivers and representatives has been obtained from the patient. Yes * Community resources currently utilized None * Additional services required to return to the preadmission environment? Yes * Can the patient safely return to the preadmission environment? Yes * Has this patient been hospitalized within the prior 30 days at any hospital? No Coverage Notice Reviewer: [id number] Booth Notice Issued Date-Time: 09/12/2019 13:41 Notice Type: IM Discharge Notice Notice Delivered To: Patient Relationship to Patient: Self Floral Specialist Name: Delivery Method: HAND - Hand Delivered Radha Days: Prior Verbal Notification: Recipient Understood Notice: Yes Recipient Signature: Yes Med Rec Note Co-signed by Attending: Coverage Notice Comment: IMM explained, signed, given, copy placed in MR Reviewer: [id number] Triny Booth Notice Issued Date-Time: 09/12/2019 13:41 Notice Type: Patient Choice Letter Notice Delivered To: Patient Relationship to Patient: Self Floral Specialist Name: Delivery Method: HAND - Hand Delivered Radha Days: Prior Verbal Notification: Recipient Understood Notice: Yes Recipient Signature: Yes Med Rec Note Co-signed by Attending: Coverage Notice Comment: [facility] for [facility] Last DP export: 09/13/19 7:02 a Patient Name: REZA GRAFF Page [id number] at 0904 All edits/amendments must be made on the electronic document DICTATION DATE: 09/13/19903 MAIL SUPERINTENDENT: ENDER 09/13/19903 RPT#: [id number] DC DATE: STATUS: ADM IN [facility] [address] [place] [address] END OF REPORT
[2019-09-13 13:52] VITALS: BP 99/65
--- NOTE | 2019-09-13 17:15 | NUR ---
MEDIPORT IV DISCONTINUED AND VERBALIZED UNERSTANDING OF DISCHARGE ISNSTRUTIONS WITH SON PRESENT. REPORT CALLED TO [facility] ON REHAB WITH PATIENT DISCHARGED. JENNIFER AT TIME OF DEPARTURE.
--- NOTE | 2019-09-14 11:35 | MORECARE ---
CASE MANAGEMENT DISCHARGE SUMMARY PATIENT: REZA GRAFF UNIT: [id number] ADM DATE: 09/08/19 AGE: 74 : 45 SEX: F ROOM/BED: D.2226 AUTHOR: EMPERATRIZ BARRERA PHYSICIAN: REFERRING PHYSICIAN: RAI HEART MD DATE OF SERVICE: 09/14/19 Discharge Plan Patient Name: REZA GRAFF Facility: [facility]:[place] : 1945 Planned Disposition: Inpatient Rehab Anticipated Discharge Date: Discharge Date: 09/13/2019 Expected LOS: 0 Initial Reviewer: [email or web address] Initial Review Date: 09/12/2019 Generated: 09/14/19 12:35 pm Comments DCP- Discharge Planning Updated by [email or web address]: Leatha Booth on 09/13/19 7:[address] Patient Name: REZA GRAFF Encounter No: [id number] : 1945 Primary Insurance: MEDICARE A & B Anticipated DC Date: Planned Disposition: Inpatient Rehab External Planned Provider: : DCP follow-up note: Patient and family in agreement with discharge plan. Her is present in the room. No changes to plan. Case management will follow and assist as needed. Leatha Booth DCP- Discharge Planning Updated by [email or web address]: Leatha Booth on 09/13/19 6:[address] Dr. Santizo and informed him that [facility] states they will accept patient today to inpatient rehab. States he will discharge today. Patient is in agreement to plan. DC today to inpatient rehab at [facility]. DCP- Discharge Planning Updated by [email or web address]: Leatha Booth on 09/12/19 12:[address] Patient Name: REZA GRAFF Admission Status: ER Accout number: [id number] Admission Date: 09-08-2019 : 1945 Admission Diagnosis:DEHYDRATION Attending: RAI HEART Current LOS: 4 Anticipated DC Date: Planned Disposition: Inpatient Rehab Primary Insurance: MEDICARE A & B Discharge Planning Comments: CM met with patient to complete initial dc planning assessment. CM educated patient on the CM role and verbal consent given by patient to complete assessment. Patient lives at home with her spouse. She states she is independent, except uses a walker for ambulation. She states she feels weak and thinks she may need a few days in rehab prior to discharge home. CM discussed availability of home health, rehab services, and medical equipment. Patient states she would like a referral to inpatient rehab here at [facility] and would like to also have [facility] when discharged home. [facility] for inpatient rehab and [facility] signed. CM will continue to follow and will assist as needed with dc plans/needs. Boxing Trainer: Leatha Booth DCPIA - Discharge Planning Initial Assessment Updated by [email or web address]: Leatha Booth on 09/12/19 1:39 pm * Is the patient Alert and Oriented? Yes * How many steps to enter\exit or inside your home? 0/0 * PCP Dr. Santizo * [facility] * Preadmission Environment Home with Family * ADLs Independent * Equipment Walker Wheelchair * List name and contact numbers for known caregivers / representatives who currently or will assist patient after discharge: Fabio Graff - [phone] * Verbal permission to speak to the caregivers and representatives has been obtained from the patient. Yes * Community resources currently utilized None * Additional services required to return to the preadmission environment? Yes * Can the patient safely return to the preadmission environment? Yes * Has this patient been hospitalized within the prior 30 days at any hospital? No Coverage Notice Reviewer: [email or web address] Booth Notice Issued Date-Time: 09/12/2019 13:41 Notice Type: IM Discharge Notice Notice Delivered To: Patient Relationship to Patient: Self Skate Shop Attendant Name: Delivery Method: HAND - Hand Delivered Radha Days: Prior Verbal Notification: Recipient Understood Notice: Yes Recipient Signature: Yes Med Rec Note Co-signed by Attending: Coverage Notice Comment: IMM explained, signed, given, copy placed in MR Reviewer: [id number] Triny Booth Notice Issued Date-Time: 09/12/2019 13:41 Notice Type: Patient Choice Letter Notice Delivered To: Patient Relationship to Patient: Self Skate Shop Attendant Name: Delivery Method: HAND - Hand Delivered Radha Days: Prior Verbal Notification: Recipient Understood Notice: Yes Recipient Signature: Yes Med Rec Note Co-signed by Attending: Coverage Notice Comment: [facility] for [facility] Last DP export: 09/13/19 8:04 a Patient Name: REZA GRAFF Page [phone] at 1135 All edits/amendments must be made on the electronic document DICTATION DATE: 09/14/19 1135 EMERGENCY DEPT TECH: ENDER 09/14/19 1135 RPT#: [id number] DC DATE:09/13/19 STATUS: DIS IN [facility] [address] [place] [address] END OF REPORT
== END 2019-09-13 17:15 | DRG 641 ==
LOC: D.ER 18:34 → D.MS 19:54 → D.SDCHOLD 09-13 14:38 → D.MS 09-13 14:38
PROVIDERS: Emergency Medicine; Internal Medicine Gastroenterology; ADMIT Family Medicine; ATTEND Family Medicine
DX: E86.0 Dehydration (principal); K50.912 Crohn's disease, unspecified, with intestinal obstruction; G20 Parkinson's disease; D64.9 Anemia, unspecified; G31.84 Mild cognitive impairment of uncertain or unknown etiology

== ENCOUNTER 2019-09-13 17:44 | Inpatient (IN) | payer MEDICARE, OTHER ==
[~2019-09-13] VITALS: Ht 160 cm; Wt 45.4 kg
--- NOTE | ~2019-09-13 | RHP ---
PATIENT: REZA HU MEDICAL RECORD: [id number] ACCOUNT: [id number] LOCATION:[facility] : [birth year] ADMISSION DATE: 09/13/19 REHABILITATION HISTORY AND PHYSICAL EXAMINATION POST ADMISSION PHYSICIAN EXAMINATION DATE OF ADMISSION: 09/13/2019. ADMITTING DIAGNOSIS: Disuse myopathy. HISTORY OF PRESENT ILLNESS: The patient is a 74-year-old female patient with a history of Parkinson's and Crohn's, depression and anemia. She had increased weakness over the previous couple of weeks prior to presenting to the Emergency Room where she had acute onset of nausea, vomiting and abdominal pain. CT of her abdomen was fairly unremarkable, did show some fluid-filled loops of bowel, but was pretty indistinct. The patient had a white count of 15,000 in the Emergency Room, a KUB showed a partial small-bowel obstruction versus ileus. NG tube was placed. She was admitted to the hospital. She had GI consultation and followup. She has got a history of Crohn's and has stopped her treatment her few weeks prior to her hospital admit after an EGD and colonoscopy by Dr. Andrews. She was found to have a UTI and received antibiotic therapy. Her NG tube was pulled on 09/12/2019 and clamped. On 09/11/2019, she was tolerating her diet and was advanced. She has had a BM. She is also on steroids that are being currently tapered. She has been receiving PT during her stay. She needs to be monitored closely for input and output for diet tolerance, BMs, monitor for her sliding scale for blood sugars on the steroids. She is on electrolyte protocol, pain control, monitoring her lab values. She has got proximal muscle weakness, balance deficits, decreased activity tolerance, decreased strength, gait disturbance, limited safety awareness, and medical complexity. She has got low endurance, unsteady gait and balance, fatigues easily and she has got inability to care for herself and these are all barriers to her discharge home. She lives at home with her and was completely independent with ADLs and mobility prior to this. She is currently set up for mod assist for ADLs and mod assist for mobility. She and her family would like for return home at her prior level of functioning. COMORBIDITIES: Include abdominal pain, small-bowel obstruction, leukocytosis, dehydration and Parkinson's. PAST MEDICAL HISTORY: Significant for Parkinson's, Crohn's disease, depression, anemia, mild cognitive impairment, acid reflux, bilateral knee problems, dementia. PAST SURGICAL HISTORY: Includes bilateral mastectomy, hysterectomy, knee surgery, and tonsillectomy and adenoidectomy. ALLERGIES: TETRACYCLINE, FLEXERIL, LORATADINE, FLAGYL, SULFA, PERCOCET, VALIUM, LATEX, BENADRYL, HYDROCODONE, REGLAN, LACTOSE, AND LOPERAMIDE. CURRENT MEDICATIONS: Include a stress tab daily. She is on prednisone 40 mg daily, Plavix 75 mg daily, vitamin D 5000 units daily. She is on Wellbutrin 300 mg daily, aspirin 81 mg daily, Protonix 40 mg b.i.d. She is on Rytary, her own medication for her Parkinson's t.i.d. She is on Carafate 1 g q.a.c. and q.h.s., primidone 50 mg q.h.s., Remeron 30 mg q.h.s., Ativan 1 mg b.i.d., Aricept 5 mg q.h.s., and Tylenol 1000 mg q.6 hours p.r.n. HISTORY AND PHYSICAL [id number] REZA HU HABITS: No alcohol or tobacco use. FAMILY HISTORY: Noncontributory. SOCIAL HISTORY: The patient hopes to return back home and get back to her prior level of functioning. REVIEW OF SYSTEMS: GENERAL: Does complain of weakness and fatigue. HEENT: Denies cold, cough, or congestion. CARDIOVASCULAR: Denies any chest pain. PHYSICAL EXAMINATION: VITAL SIGNS: Stable, afebrile. GENERAL: A very thin, elderly female, in no acute distress, alert upon exam. HEENT: Normocephalic and atraumatic. Mucosa moist. NECK: Supple. No lymphadenopathy. LUNGS: Clear in upper xavier. HEART: Regular rate and rhythm. No murmurs, rubs or gallops. ABDOMEN: Noted to be somewhat distended, firm and tender today. EXTREMITIES: No clubbing, cyanosis or edema. NEUROLOGIC: Mainly within normal limits. LABORATORY DATA: White count is 27,000 for prednisone, H&H 13 and 39, and platelet count 362. Sodium 145, potassium 3.5, BUN and creatinine of 21 and 0.7, blood sugar is noted to be 104. ASSESSMENT: This is a 74-year-old female patient admitted to the rehab with a working diagnosis of disuse myopathy. The patient has potential to make improvement. We instituted the following multiple disciplinary therapies including, but not limited to physical, occupational, respiratory, speech, nutritional services, prosthetics and orthotics. Given her complex medical conditions and risks for more complications, rehabilitation services cannot be provided at a low level of care such as skilled nurse facility. PLAN: 1. Admit to [facility] for intensive inpatient therapy to include the following disciplines: A. Physical therapy to improve gait, all transfer skills and bed mobility to a modified independent level. B. Occupational therapy to improve activities of daily living to a modified independent level. C. Case management to assist with discharge planning and placement options. D. Nutrition to assist with nutritional needs. E. Rehabilitation nursing to assist in monitoring the patient's underlying medical conditions and to assist with any type of bowel or bladder management. 2. The patient's current medication and medical care will be continued. 3. The patient will be placed on standard fall precautions. 4. The patient's estimated length of stay is approximately 7-10 days. 5. We will discuss the patient during care team staff meeting this week. I am going to go ahead and get a followup x-ray of her abdomen and assess this and then decide what we need to do. TRANSINT:[id number] Voice Confirmation ID: [id number] DOCUMENT ID: [id number] HISTORY AND PHYSICAL [id number] REZA HU notes whether there has been none or any medical/functional change since admission: - EMORY attests patient continues to be appropriate for IRF: - BRE DELCID MD CC: [id number] DICTATION DATE: 09/14/19850 TRANSCRIPTER: 09/14/19923 ADM IN [facility] [address] [place] [address]
--- NOTE | 2019-09-13 17:15 | NUR ---
RECIEVED FROM ACUTE CARE.ORIENTED TO ROOM AND SURROUNDINGS.CL IN REACH.
[~2019-09-13 17:44] MED LIST changes: +PREDNISONE20 MG PO
--- NOTE | 2019-09-13 18:15 | NUR ---
GREETED PATIENT AND INTRODUCED MYSELF HER NURSE. PATIENT IS LAYING IN BED RESTING AT THIS TIME AND LETHARGIC. DENIES ANY NEEDS AT THIS TIME. RESPIRATIONS EVEN. NO S/S OF DISTRESS. CALL LIGHT IN REACH.
[2019-09-13 19:30] VITALS: BP 94/67
[2019-09-13 22:10] VITALS: BP 94/67; BMI 17.7
--- NOTE | 2019-09-14 02:58 | NUR ---
PT RESTING QUIETLY WITH EYES CLOSED. RESPIRATIONS EVEN. NO S/S OF DISTRESS. CALL LIGHT IN REACH.
[2019-09-14 06:30] LABS: CALC OSMOLALITY 291 mosm/kg (275-300); CALCIUM 7.6 mg/dL (8.5-10.1); CARBON DIOXIDE 22.6 mmol/L (21.0-32.0); CHLORIDE - SERUM 108 mmol/L (98-107); CREATININE - SERUM 0.7 mg/dL (0.6-1.3); GLUCOSE 104 mg/dL (74-106); POTASSIUM - SERUM 3.5 mmol/L (3.5-5.1); SODIUM 145 mmol/L (136-145); UREA NITROGEN 21 mg/dL (7-18); eGFR NON AFRICAN AMERICAN 87 mL/min (90-120)
[2019-09-14 06:42] LABS: HEMATOCRIT 39.9 % (36.0-48.0); HEMOGLOBIN 13.5 g/dL (12-16); MCH 31.2 pg (26.0-34.0); MCHC 33.8 g/dL (31.0-37.0); MCV 92.1 fL (80.0-100.0); MEAN PLATELET VOLUME 10.1 fL (7.4-10.4); PLATELET COUNT 362 10x3/uL (130-400); RBC 4.33 10x6/uL (4.00-5.40); RDW 16.8 % (11.5-14.5); WBC 27.7 10x3/uL (4.8-10.8)
[2019-09-14 08:26] VITALS: BP 98/64
[2019-09-14 10:18] VITALS: Ht 160 cm; Wt 45.4 kg
[2019-09-14 10:27] LABS: LYMPHOCYTES 5 % (15-50); MONOCYTES 6 % (2-11); NEUTROPHILS 86 % (40-80); PLATELET ESTIMATE NORMAL
--- NOTE | 2019-09-14 10:49 | NUR ---
STATES HER ABD IS FEELING A LITTLE BETTER. AM MEDS GIVEN AFTER ABD XRAY WAS TAKEN.. THE RESULTS WERE CALLED TO DR DELCID. SHE SEEMS SLIGHTLY LETHARGIC AND HER MOVEMENTS ARE SLOW. LAYING IN BED PRESENTLY RESTING QUIETLY. NO S/S PAIN OR DISTRESS. CALL LIGHT IN REACH
--- NOTE | 2019-09-14 14:19 | NUR ---
Nutrition follow-up: Chart reviewed and visited with Gomez Anaya re: advancing diet to regular mechanical soft. Pt also allergic to soy, milk products so changed supplement to Ensure clear. RDN following.
[2019-09-14 19:40] VITALS: BP 104/63
--- NOTE | 2019-09-14 20:00 | NUR ---
PATIENT RECEIVED SITTING UP IN BED. FRIEND AT BEDSIDE. ASSESSMENT & VITAL SIGNS DONE. C/O PAIN TO LEFT HIP. PAIN MEDICATION GIVEN. BED LOW. CALL LIGHT WITHIN REACH. WILL CONTINUE TO MONITOR.
--- NOTE | 2019-09-14 20:00 | NUR ---
PATIENT RECEIVED SITTING UP IN BED. ASSSESSMENT & VITAL SIGNS DONE. NO C/O PAIN OR DISTRESS. BED LOW. CALL LIGHT WITHIN REACH. WILL CONTINUE TO MONITOR.
--- NOTE | 2019-09-15 01:20 | NUR ---
PATIENT USED C/L FOR ASSIST. PATIENT ONE PERSON ASSIST INTO W/C & ONTO COMMODE. PATIENT HAD VOID & USED C/L FOR ASSIST OFF OF TOILET. PATIENT RETURNED TO BED. SIDE TABLE WITHIN REACH. C/L WITHIN REACH. WILL CONTINUE TO MONITOR.
--- NOTE | 2019-09-15 02:35 | NUR ---
PATIENT EYES CLOSED. RESPIRATIONS 18 & EVEN. BED LOW. CALL LIGHT WITHIN REACH. WILL CONTINUE TO MONITOR.
--- NOTE | 2019-09-15 02:59 | NUR ---
I have reviewed this patient and I concur with the Shift Assessment completed by the Licensed Practical Nurse today this shift.
[2019-09-15 08:00] VITALS: BP 107/67
--- NOTE | 2019-09-15 08:00 | NUR ---
LAYING IN BED, SPEECH IS SOFT AND MUMBLING. STATES SHE HAS SOME ABD PAIN. SHE FEELS HER ABD IS DISTENDED. HER ABD IS FIRM. IS IN ROOM. ENCOURAGED PT TO GET UP IN CHAIR AND ROLL SIDE TO SIDE TO HELP GAS ESCAPE. SHE REFUSED BREAKFAST.
--- NOTE | 2019-09-15 10:40 | NUR ---
PT ASKED TO GO TO BATHROOM. SHE SEEMED TO BE PASSING GAS AND STATED SHE MIGHT NEED TO HAVE BM. NURSE ASSISTED PT TO WHEEL CHAIR AND SHE TRANSFERED WITH NAIF MURRELL, SAT DOWN THEN SLUMPED TO THE LEFT IN THE WC. SHE WOULD NOT RESPOND, FOLLOW COMMANDS, OR SIT UP STRAIGHT. SHE WAS LOOKING STRAIGHT AHEAD, DROOLING AND BREATHING FASTER. SHE WAS PLACED IN THE BED BY STAFF FOR FURTHER ASSESSMENT, V/S OBTAINED, FSBS OBTAINED,.......
--- NOTE | 2019-09-15 10:45 | NUR ---
RAPID RESPONSE CALLED
--- NOTE | 2019-09-15 10:50 | NUR ---
RAPID RESPONSE TEAM IN ROOM WITH PT. WAS CALLED X4 BUT NO ANSWER. MESSAGE LEFT FOR HIM TO CALL BACK. DR DELCID CALLED, PT BEING ASSESSED BY RAPID RESPONSE TEAM....
--- NOTE | 2019-09-15 11:59 | NUR ---
TRANSFERED TO ICU.
--- NOTE | 2019-09-17 10:51 | NUR ---
PATIENT HAD A CHANGE IN MEDICAL CONDTION AND WAS DISCHARGED FROM REHAB AND ADMITTED TO ICU.
== END 2019-09-15 11:26 | disposition short-term general hospital (02) | DRG 58 ==
LOC: D.REHAB 17:44
PROVIDERS: ADMIT Emergency Medicine; ATTEND Emergency Medicine
DX: G72.89 Other specified myopathies (principal); K56.609 Unspecified intestinal obstruction, unspecified as to partial versus complete obstruction; K50.90 Crohn's disease, unspecified, without complications; E87.2 Acidosis; E86.0 Dehydration; G20 Parkinson's disease; M62.81 Muscle weakness (generalized); R26.81 Unsteadiness on feet; R53.83 Other fatigue; K21.9 Gastro-esophageal reflux disease without esophagitis; D72.829 Elevated white blood cell count, unspecified; J80 Acute respiratory distress syndrome

== ENCOUNTER 2019-09-15 11:39 | Inpatient (IN) | payer MEDICARE, OTHER ==
[~2019-09-15] VITALS: Ht 160 cm; Wt 50.0 kg
[2019-09-15] VITALS (37 sets, daily range): BP systolic 0–100; BP diastolic 0–73; Ht 160 cm; Wt 50.0 kg
--- NOTE | 2019-09-15 12:20 | NUR ---
RECEIVED TO ROOM 2313 VIA BED FROM REHAB AFTER RAPID RESPONSE. BIPAP AT 100%, NS BOLUS. PT NOTIFIED AND AT BEDSIDE. NEW ORDERS FROM , WILL CONT TO MONITOR.
--- NOTE | 2019-09-15 13:00 | NUR ---
AT BEDSIDE. WILL CONT TO MONITOR.
[2019-09-15 13:26] LABS: BASOPHILS 0.2 % (0-2); EOSINOPHILS 0.2 % (0-7); HEMATOCRIT 39.6 % (36.0-48.0); HEMOGLOBIN 12.9 g/dL (12-16); IMMATURE GRANULOCYTES 2.2 % (0-5); LYMPHOCYTES 9.3 % (15-50); MCH 30.2 pg (26.0-34.0); MCHC 32.6 g/dL (31.0-37.0); MCV 92.7 fL (80.0-100.0); MEAN PLATELET VOLUME 9.4 fL (7.4-10.4); MONOCYTES 1.9 % (2-11); NEUTROPHILS 86.2 % (40-80); PLATELET COUNT 302 10x3/uL (130-400); RBC 4.27 10x6/uL (4.00-5.40); RDW 17.1 % (11.5-14.5); WBC 4.6 10x3/uL (4.8-10.8)
--- NOTE | 2019-09-15 13:40 | NUR ---
RIGHT CHEST PORT ACCESSED. INFUSAPORT FLUSHED AND DRAWS BLOOD WELL.
[2019-09-15 13:51] LABS: ALBUMIN 1.5 g/dL (3.4-5.0); ALKALINE PHOSPHATASE 227 U/L (30-120); ALT (SGPT) 34 U/L (10-68); BILIRUBIN - TOTAL 0.98 mg/dL (0.2-1.3); CHLORIDE - SERUM 111 mmol/L (98-107); CREATINE KINASE 247 UL (21-215); SODIUM 144 mmol/L (136-145); UREA NITROGEN 26 mg/dL (7-18)
--- NOTE | 2019-09-15 13:55 | NUR ---
CALLED AND GIVEN UPDATE. WILL CONT TO MONITOR.
[2019-09-15 14:12] LABS: CALC OSMOLALITY 288 mosm/kg (275-300); CARBON DIOXIDE 16.3 mmol/L (21.0-32.0); CREATININE - SERUM 1.2 mg/dL (0.6-1.3); POTASSIUM - SERUM 4.2 mmol/L (3.5-5.1); eGFR NON AFRICAN AMERICAN 46 mL/min (90-120)
[2019-09-15 14:13] LABS: GLUCOSE 49 mg/dL (74-106)
[2019-09-15 14:14] LABS: CALCIUM 6.9 mg/dL (8.5-10.1)
--- NOTE | 2019-09-15 15:00 | NUR ---
REASSESSMENT COMPLETED PER FLOWSHEET, SEE FLOWSHEET FOR INFORMATION. WILL CONT TO MONITOR.
--- NOTE | 2019-09-15 17:00 | NUR ---
PT . AT BEDSIDE PRONOUNCED AT 1700. NOTIFIED.
--- NOTE | 2019-09-15 17:11 | NUR ---
CALLED CORONOR OFFICE, LEFT NUMBER TO CALL BACK.
--- NOTE | 2019-09-15 17:38 | NUR ---
VALARIE NOTIFIED AND DECLINED DUE TO HX OF CANCER. ITALIAN TUTOR CALLED AGAIN. SPOKE WITH ITALIAN TUTOR.
--- NOTE | 2019-09-15 20:23 | NUR ---
BUSINESS MANAGEMENT ANALYST KENDRA LARSON RETURNED CALL AND RELEASED PT TO HOME.
--- NOTE | 2019-09-15 20:43 | NUR ---
[facility] NOTIFIED PER FAMILY REQUEST.
--- NOTE | 2019-09-15 21:46 | NUR ---
ASSISTED [facility] WITH PT, ACCOMPANIED BY SECURITY OUT OF UNIT.
== END 2019-09-15 17:00 | DRG 393 ==
LOC: D.ICU 11:39
PROVIDERS: ADMIT Internal Medicine Nephrology; ATTEND Internal Medicine Nephrology
DX: K63.1 Perforation of intestine (nontraumatic) (principal); A41.9 Sepsis, unspecified organism; J18.9 Pneumonia, unspecified organism; I26.99 Other pulmonary embolism without acute cor pulmonale; J96.01 Acute respiratory failure with hypoxia; R65.21 Severe sepsis with septic shock; K65.9 Peritonitis, unspecified; G93.40 Encephalopathy, unspecified; E46 Unspecified protein-calorie malnutrition; Z68.1 Body mass index [BMI] 19.9 or less, adult; G20 Parkinson's disease